=== PATIENT | male | born 1955 | race Caucasian/White ===

== ENCOUNTER 2017-05-20 18:36 | Inpatient (IN) | payer MEDICARE ==
--- NOTE | 2017-05-20 00:30 | NUR ---
RECEIVED ORDER FROM DR. COUGHLIN FOR MORPHINE POWDER COATER. NOW THERE IS AN ORDER FOR IV MORPHINE PRN PUT IN A LATE ENTRY FROM THE ER. WILL D/C ER ORDER AND START MORPHINE POWDER COATER. PT HAS A HEPARIN DRIP RUNNING TO RIGHT FOREARM. ATTEMPTED TO START A SECOND IV SITE, BUT WAS UNABLE TO. MYSELF, ANOTHER NURSE, AND A POWER LINEMAN TRIED TO START 2ND IV SITE WITHOUT SUCCESS. POWER LINEMAN RESEARCHED IF MORPHINE POWDER COATER WAS COMPATIBLE WITH IV HEPARIN. PER HER RESEARCH, THE TWO CAN BE CONNECTED VIA Y SITE. MORPHINE POWDER COATER INITIATED AND PT REPORTED SIGNIFICANT RELIEF FROM HIS PAIN. PT SLEEPING WITHOUT ANY COMPLAINTS.
[2017-05-20 19:42] LABS: BASOPHILS 0.2 % (0-2); EOSINOPHILS 1.2 % (0-7); HEMATOCRIT 40.3 % (42.0-54.0); HEMOGLOBIN 13.3 g/dL (13.5-17.5); IMMATURE GRANULOCYTES 0.3 % (0-5); LYMPHOCYTES 11.2 % (15-50); MCH 28.2 pg (26.0-34.0); MCV 85.4 fL (80.0-100.0); MEAN PLATELET VOLUME 10.6 fL (7.4-10.4); MONOCYTES 7.3 % (2-11); NEUTROPHILS 79.8 % (40-80); RBC 4.72 10x6/uL (4.20-6.10); RDW 16.2 % (11.5-14.5); WBC 12.8 10x3/uL (4.8-10.8)
[2017-05-20 19:43] LABS: PLATELET COUNT 225 10x3/uL (130-400)
[2017-05-20 19:50] LABS: INR 2.5 (0.85-1.17); PROTIME 27.1 SECONDS (11.6-15.0)
[2017-05-20 19:51] LABS: APTT 44.8 SECONDS (22.8-39.4)
[2017-05-20 19:55] LABS: ALBUMIN 2.4 g/dL (3.4-5.0); ALKALINE PHOSPHATASE 206 U/L (46-116); ALT (SGPT) 66 U/L (10-68); BILIRUBIN - TOTAL 0.17 mg/dL (0.2-1.3); CALC OSMOLALITY 277 mosm/kg (275-300); CALCIUM 9.2 mg/dL (8.5-10.1); CARBON DIOXIDE 32.4 mmol/L (21.0-32.0); CHLORIDE - SERUM 94 mmol/L (98-107); CREATININE - SERUM 1.7 mg/dL (0.6-1.3); GLUCOSE 182 mg/dL (74-106); POTASSIUM - SERUM 4.2 mmol/L (3.5-5.1); PROTEIN - SERUM 8.4 g/dL (6.4-8.2); SODIUM 132 mmol/L (136-145); UREA NITROGEN 36 mg/dL (7-18); eGFR NON AFRICAN AMERICAN 44 mL/min (90-120)
[2017-05-20 20:06] LABS: CKMB 0.3 U/L (0.0-3.6); CREATINE KINASE 38 UL (21-232); TROPONIN-I < 0.017 ng/mL (0.000-0.060)
--- NOTE | 2017-05-20 21:15 | NUR ---
PT NEW ADMIT FROM THE ER W/ DX OF LEFT ULNAR OCCULSION ON A HEPARIN DRIP. PT WITH VSS, BUT SEVERE PAIN. HE IS ALERT AND ORIENTED. INCONTIENT OF URINE. PT'S LEFT RADIAL PULSE OBTAINED VIA DOPPER, ULNAR PULSE UNABLE TO DOPPLER OR PALPATE. LEFT FINGERTIPS PURPLISH-BLUE W/ SLUGGISH CAP REFILL. RIGHT SIDE WNL. HEPARIN DRIP RUNNING AT 1000 UNITS/HR TO 20G IN RIGHT FOREARM. PT'S LEFT HAND AND ARM W/ 3+ EDEMA. PT IS REPORTING SEVERE PAIN 9/10 IN LEFT HAND AND ARM. ER NURSE STATED THAT THERE WAS AN ORDER FOR PAIN MEDS, BUT THERE IS NO ORDER IN THE SYSTEM. WILL CALL THE MD FOR PAIN MED FOR PT'S ISCHEMIC PAIN.
[2017-05-21] VITALS (8 sets, daily range): BP systolic 112–150; BP diastolic 62–73; BMI 25.5
[2017-05-21 03:58] LABS: BASOPHILS 0.1 % (0-2); EOSINOPHILS 1.1 % (0-7); HEMOGLOBIN 12.5 g/dL (13.5-17.5); IMMATURE GRANULOCYTES 0.3 % (0-5); LYMPHOCYTES 13.6 % (15-50); MCH 27.7 pg (26.0-34.0); MCHC 32.9 g/dL (31.0-37.0); MCV 84.3 fL (80.0-100.0); MEAN PLATELET VOLUME 10.6 fL (7.4-10.4); MONOCYTES 6.5 % (2-11); NEUTROPHILS 78.4 % (40-80); PLATELET COUNT 209 10x3/uL (130-400); RBC 4.51 10x6/uL (4.20-6.10); RDW 16.3 % (11.5-14.5)
[2017-05-21 04:04] LABS: ANION GAP 10.4 mmol/L (8-16); CALCIUM 8.9 mg/dL (8.5-10.1); CARBON DIOXIDE 30.8 mmol/L (21.0-32.0); CREATININE - SERUM 1.5 mg/dL (0.6-1.3); POTASSIUM - SERUM 4.2 mmol/L (3.5-5.1)
--- NOTE | 2017-05-21 06:39 | NUR ---
PT'S PAIN MUCH IMPROVED W/ MORPHINE CERTIFIED MASTER SAFE TECHNICIAN. PT HAS SLEPT THROUGHOUT THE REST OF THE SHIFT. WILL CONT TO MONITOR.
--- NOTE | 2017-05-21 07:55 | NUR ---
AM ROUNDING DONE WITH PATIENT APPEARING TO BE ALSEEP. RESP ARE EVEN AND NON LABORED. HEPARIN DRIP SEEN INFUSING AT 10 CC/HR TO RIGHT ARM ALONG WITH MANNEQUIN REFINISHER MS FOR PAIN CONTROL. ON ROOM AIR. NO HEART MONITOR ON PER ORDERS, WILL GET ONE FROM TECH. ON BEDREST. WILL MONITOR.
[2017-05-21] MEDS ORDERED: COUMADIN5 MG PO (09:36)
[2017-05-21] MEDS ORDERED: LASIX20 MG PO (09:37)
[2017-05-21] MEDS ORDERED: LIPITOR40 MG PO (09:37)
[2017-05-21] MEDS ORDERED: METOLAZONE2.5 MG PO (09:37)
[2017-05-21] MEDS ORDERED: LEVEMIR100 U/M1 SQ (09:38)
[2017-05-21] MEDS ORDERED: ALDACTONE25 MG PO (09:38)
[2017-05-21] MEDS ORDERED: COREG 3.1253.125 MG PO (09:39)
[2017-05-21] MEDS ORDERED: CORDARONE200 MG PO (09:39)
[2017-05-21] MEDS ORDERED: HYDRALAZINE HCL10 MG PO (09:39)
--- NOTE | 2017-05-21 15:22 | NUR ---
CALLED SID IN PHARMACY R/T LEVAMIR PATIENT STATES THAT HE TAKES IT IN THE AM.
--- NOTE | 2017-05-21 16:31 | NUR ---
CLEANED AGAIN FOR INCONT. OF URINE TO DEPENDS. PATIENT IS STARTING TO GET A LITTLE CHAFED IN GROIN. BUTT PASTE APPLIED.
--- NOTE | 2017-05-21 20:00 | NUR ---
PT RESTING IN BED. ALERT/ORIENTED. LEFT HAND/ARM SWOLLEN/EDEMATOUS. FINGERS REDDENED IN COLOR. IV TO RFA WITH HEPARIN DRIP AT 10ML/HR AND NS @ 75ML/HR + MORPHINE COPING MACHINE ASSEMBLER FOR PAIN CONTROL. SEE SHIFT ASSESSMENT. CPOC.
--- NOTE | 2017-05-21 21:15 | NUR ---
BEDTIME MEDS GIVEN. FSBS 108. PT INCONTINENT OF URINE. CHANGED BRIEF/PROVIDED SKIN CARE FOR INCONTINENCE. CALL LIGHT IN REACH. CPOC.
--- NOTE | 2017-05-22 02:48 | NUR ---
ASSISTED PT TO USE URINAL TO VOID. HEPARIN DRIP INFUSING. USING MORPHINE CHUTE BUILDER. LEFT ARM ELEVATED ON PILLOW.
[2017-05-22 04:00] VITALS: BP 115/58
[2017-05-22 05:00] VITALS: BP 112/58
--- NOTE | 2017-05-22 06:15 | NUR ---
NEW BAG OF IVF. PT C/O BEING WET. HE IS WET AND HIS BED IS WET. LINENS CHANGED. PERICARE PERFORMED. CHANGED DRESSING TO LEFT GROIN. PT NOW RESTING WITH NO FURTHER NEEDS.
[2017-05-22 06:45] LABS: BASOPHILS 0.3 % (0-2); EOSINOPHILS 1.6 % (0-7); HEMATOCRIT 34.3 % (42.0-54.0); HEMOGLOBIN 11.1 g/dL (13.5-17.5); IMMATURE GRANULOCYTES 0.4 % (0-5); LYMPHOCYTES 17.2 % (15-50); MCH 27.3 pg (26.0-34.0); MCHC 32.4 g/dL (31.0-37.0); MCV 84.3 fL (80.0-100.0); MEAN PLATELET VOLUME 11.5 fL (7.4-10.4); MONOCYTES 7.3 % (2-11); NEUTROPHILS 73.2 % (40-80); PLATELET COUNT 189 10x3/uL (130-400); RBC 4.07 10x6/uL (4.20-6.10); RDW 16.5 % (11.5-14.5)
[2017-05-22 06:51] LABS: INR 2.6 (0.85-1.17)
[2017-05-22 06:56] LABS: APTT 52.1 SECONDS (22.8-39.4)
[2017-05-22 07:00] LABS: ANION GAP 12.5 mmol/L (8-16); CALCIUM 8.5 mg/dL (8.5-10.1); CARBON DIOXIDE 29.9 mmol/L (21.0-32.0); CREATININE - SERUM 1.2 mg/dL (0.6-1.3); POTASSIUM - SERUM 4.4 mmol/L (3.5-5.1)
--- NOTE | 2017-05-22 07:25 | NUR ---
AM PTT 52.1 INCREASED HEPARIN DRIP TO 11ML/HR. NEXT PTT SCHEDULED FOR 1300.
--- NOTE | 2017-05-22 07:42 | NUR ---
HEPARIN DRIP WAS ADJUSTED PER PREVIOUS SHIFT, RE-CHECK AT 1300 FOR PTT. HEPARIN IS INFUSING TO RIGHT FA AT 11 CC/HR ALONG WITH NS AT 75 CC/HR AND COW TRIMMER WITH MS 07/27/09. RIGHT AKA. IN DEPENDS. ON HEART MONITOR SHOWING SR, HR 65. ROOM AIR. LEFT ARM IS ELEVATED ON PILLOW, SLIGHTLY SWOLLEN. WILL ADDRESS COLOR WHEN LIGHT ON. PATIENT APPEARING TO BE SLEEPING, RESP ARE EVEN AND NON LABORED. WILL MONITOR.
[2017-05-22 08:00] VITALS: BP 116/63
--- NOTE | 2017-05-22 08:58 | NUR ---
PATIENT'S BLOOD PRESSURE IS 116/53. HOLDING THE LASIX, APRESOLINE, AND ZAROXOLYN UNTIL IS SEE DR COUGHLIN AND ASK HIM. PATIENT IS IN AGREEMENT WITH THIS.
--- NOTE | 2017-05-22 09:17 | NUR ---
PATIENT IS MADE NPO FOR CT.
--- NOTE | 2017-05-22 11:18 | NUR ---
DR COUGHLIN HERE AND MADE AWARE OF PATIENT'S LASIX AND B/P MEDS BEING HELD. HE IS OKAY WITH ME HOLDING THEM TODAY.
--- NOTE | 2017-05-22 11:28 | NUR ---
IV CONVERTED TO SALINE LOCK FOR CTA TO BE DONE, GOING BY BED.
--- NOTE | 2017-05-22 12:22 | NUR ---
PATIENT TO RETURN FROM RADIOLOGY. ASSISTED WITH URNIANL. CALLED DIET OFFICE AND ASKED FOR HIS TRAY TO BE SENT UP.
--- NOTE | 2017-05-22 13:18 | NUR ---
1240-PTT RESULTS COME BACK AT 51.6. PER HEPARIN PROTOCOL SHEET, RATE INCREASED BY 100 UNITS OR 1. INCREASED TO 12 CC/HR. VERIFIED BY CARITO VELASQUEZ. WILL ORDER NEW PTT IN 6 HOURS.
[2017-05-22 16:00] VITALS: BP 118/43
--- NOTE | 2017-05-22 17:23 | NUR ---
FINISHED EATING HIS HAMBURGER WHICH HE STATES THAT HE DID NOT LIKE. I ASKED HIM IF HE WANTED SOMETHING ELSE AND HE REPLIED NO. WILL CONTINUE TO MONITOR.
--- NOTE | 2017-05-22 19:40 | NUR ---
PT RESTING IN BED. PTT HAS BEEN DRAWN. HEPARIN DRIP RESTARTED AT 12ML/HR, PENDING NEW LAB RESULTS. IV SITED TO RFA, NS @ 75ML/HR + MORPHINE RUBBER COMPOUNDER SUPERVISOR FOR PAIN CONTROL. HEPARIN DRIP IS PIGTAILED TO SITE. PT'S LEFT ARM AND HAND IS STILL SWOLLEN, BUT COLOR IS PINKING UP. PT IS OLD RIGHT AKA. HE IS WEARING A DEPENDS BECAUSE HE IS MORE INCONTINENT, THAN CONTINENT. SEE ASSESSMET. CPOC.
--- NOTE | 2017-05-22 20:30 | NUR ---
INCREASED HEPARIN DRIP TO 13ML/HR BASED ON PTT. NEXT PTT 0230.
[2017-05-22 20:49] VITALS: BP 131/67
--- NOTE | 2017-05-22 21:19 | NUR ---
BEDTIME MEDS GIVEN. FSBS 141, NO ACTION REQUIRED. PT WATCHING TV. MORPHINE DIRECTOR OF PUBLIC SAFETY IN USE FOR PAIN CONTROL. IVF NS @ 75ML/HR INFUSING. CPOC.
--- NOTE | 2017-05-22 23:03 | NUR ---
NEW BAG OF HEPARIN UP. PT INCONTINENT OF URINE. CARE PROVIDED. LINENS CHANGED.
[2017-05-23 01:18] VITALS: BP 125/56
--- NOTE | 2017-05-23 03:15 | NUR ---
PTT WAS DRAWN AT 0230. RESULT WAS EXCEEDINGLY HIGH AT 146.3. HEPARIN DRIP PUT ON HOLD AND LAB NOTIFIED OF NEED FOR REDRAW IN 30 MINUTES.
--- NOTE | 2017-05-23 04:18 | NUR ---
LAB NOW IN ROOM REDRAWING PTT. WILL AWAIT RESULTS.
[2017-05-23 05:25] VITALS: BP 118/56
--- NOTE | 2017-05-23 07:44 | NUR ---
AM ROUNDS- PT IN BED WITH EYES CLOSED, AROUSES EASILY TO VOICE. PT DENIES ANY NEEDS AT THIS TIME. RESP EVEN AND UNLABORED. RT FA IV INFUSING HEPARIN AT 14 AND MOPRHINE SCRIPT WORKER AND NS AT 75. BED LOW AND WHEELS LOCKED, BEDSIDE RAILS X2, CALL LIGHT IN REACH, NAD NOTED, WILL CONTINUE TO MONITOR.
[2017-05-23 08:00] VITALS: BP 132/62
--- NOTE | 2017-05-23 09:44 | NUR ---
ADMINISTERED AM MEDS. ALSO CLEAN PT UP FROM INCONT EPISODE. PT DENIES ANY OTHER NEEDS AT THIS TIME. CALL LIGHT IN REACH, NAD NOTED, WILL CONTINUE TO MONITOR.
--- NOTE | 2017-05-23 10:08 | NUR ---
Patient Name: MERCEDES HECTOR Admission Status: ER Accout number: [id number] Admission Date: 05-20-2017 : 1955 Admission Diagnosis: Attending: PORSHA COUGHLIN Current LOS: 3 Anticipated DC Date: 05-23-2017 Planned Disposition: Senior Living Facility Primary Insurance: MEDICARE A & B PLANNED EXTERNAL PROVIDER: [facility] Discharge Planning Comments: * Is the patient Alert and Oriented? Yes 0 * How many steps to enter\exit or inside your home? NONE 0 * PCP DR. SILVEIRA 0 * Pharmacy [facility] 0 * Preadmission Environment Senior Living Facility 0 * Facility Name [facility] 0 * ADLs Partial Dependent 0 * Partial ADLs (Assistance needed) Ambulation Bathing Medication Management Transfers 0 * Equipment Wheelchair 0 * Other Equipment ALL MEDICAL EQUIPMENT PROVIDED BY FACILITY 0 * List name and contact numbers for known caregivers / representatives who currently or will assist patient after discharge: YESENIA HECTOR, DTR, 0 * Community resources currently utilized None 0 * Please name any agencies selected above. NONE 0 * Additional services required to return to the preadmission environment? No 0 * Can the patient safely return to the preadmission environment? Yes 0 * Has this patient been hospitalized within the prior 30 days at any hospital? No 0 CM RECEIVED DISCHARGE ORDER, MET WITH PT IN ROOM TO DISCUSS DISCHARGE PLANNING AND NEEDS. PT REPORTS HE WILL BE RETURNING TO REHAB AT [facility]; PT WILL CALL HIS FAMILY AND ASKED IF HE NEEDS TO CALL [facility]; CM ADVISED THAT NURSING AND CM WILL MAKE TRANSPORATION ARRANGEMENTS WITH [facility] TO PICK PT UP TODAY. IMPORTANT MESSAGE FROM MEDICARE PROVIDED AND EXPLAINED. CM CALLED [facility] AT [phone], SPOKE TO YEIMY WHO REPORTS THEY NEED MEDICAL INFORMATION FOR REVIEW AND TO SPEAK WITH THE BEDSIDE NURES BEFORE ACCEPTING BACK. CM FAXED CHART INFORMATION TO [facility] AT [phone]. NURSE REPORT TO BE CALLED TO [facility] AT [phone]. [facility] TO ARRANGE TRANSPORTATION FOR PT'S RETURN REHAB IF ACCEPTED. Geometry Teacher: Margarito Richards
--- NOTE | 2017-05-23 11:24 | NUR ---
BLOOD SUGAR OF 172, PT REFUSED COVERAGE STATED " THAT'T NOT HIGH. PT DENIES ANY NEEDS AT THIS TIME. CALL LIGHT IN REACH, NAD NOTED, WILL CONTINUE TO MONITOR.
--- NOTE | 2017-05-23 11:49 | NUR ---
ASSOCIATE PROFESSOR OF PSYCHOLOGY D/C AT THIS TIME. WASTED 1MG OF MORPHINE WITH ANOTHER RN. [facility] WILL PICK PT UP AFTER LUNCH.
[2017-05-23 12:00] VITALS: BP 136/57
--- NOTE | 2017-05-23 12:20 | NUR ---
CALLED [facility] AT [phone] AND GAVE REPORT TO ANN HONEYCUTT WHO WILL BE TAKING CARE OF PT.
--- NOTE | 2017-05-23 12:44 | NUR ---
PROVIDED VERBAL AND WRITTEN D/C TEACHING TO PT. PT VERBALIZED UNDERSTANDING REGARDING TEACHING. D/C RT FA IV TIP INTACT. WAITING ON [facility] TO PICK HIM UP. PT DENIES ANY NEEDS AT THIS TIME.
--- NOTE | 2017-05-23 14:10 | NUR ---
PT LEFT UNIT VIA WHEELCHAIR, NAD NOTED.
--- NOTE | 2017-06-06 14:45 | DS ---
PATIENT:MERCEDES HECTOR :[birth year] MEDICAL RECORD: [id number] DISCHARGE SUMMARY ADMISSION DATE: 05/20/17 DISCHARGE DATE: 05/23/17 DATE OF ADMISSION: 05/20/2017 DATE OF DISCHARGE: 05/23/2017 ADMISSION DIAGNOSES: 1. Peripheral vascular disease. 2. Obstruction of left ulnar artery. 3. Atrial fibrillation. 4. Diabetes mellitus. 5. History of chronic Coumadin use. 6. Tobacco dependence syndrome. DISCHARGE DIAGNOSES: 1. Peripheral vascular disease. 2. Obstruction of left ulnar artery. 3. Atrial fibrillation. 4. Diabetes mellitus. 5. History of chronic Coumadin use. 6. Tobacco dependence syndrome. PROCEDURES: None. CONSULTATIONS: None. REPORT OF HOSPITALIZATION: The patient was admitted to the hospital through the ER with chronic pain in the left hand, which had been ongoing for the last few months, but got acutely worse few days prior to admission. He noted that hand turned purple. His INR on admission was 2.5. He had a history of atrial bi-fem with severe peripheral vascular disease. He had a history of a right AKA in 2009. The patient was admitted to the hospital and put on a heparin drip and maintained off of his tobacco. Initially, his creatinine was too high to perform any radiological evaluations, but he did have an ultrasound, which showed no flow in the ulnar artery on the left hand. Eventually, his creatinine improved to the point where we were able to get a CTA of the left upper extremity. The findings showed there was a patent left subclavian, axillary, and brachial arteries with limited visualization of the interosseous artery beyond the proximal portion of the vessel. There was limited visualization of ulnar artery. The patient did have flow seen through the radial artery to the hand. The patient also did have a patent left ax-fem bypass graft in place. Over his hospitalization, his hand actually improved, had warmed up and the color returned. The patient was told that he really did not have any surgical options available for this and that he was on antiembolic medications already. The patient was told that his improvement was most likely related to the fact that he was not smoking while he was in the hospital. DISCHARGE INSTRUCTIONS: 1. Return to clinic or call if any questions or concerns. 2. Recommended strongly smoking cessation. FOLLOWUP: As needed. DISCHARGE SUMMARY REPORT [id number] MERCEDES HECTOR DISCHARGE MEDICATIONS: Resume home medications. TRANSINT:[id number] Voice Confirmation ID: [id number] DOCUMENT ID: [id number] PORSHA COUGHLIN MD at 1445 CC: [id number] DICTATION DATE: 05/31/17 1501 HADOOP ADMINISTRATOR: 05/31/17 1523 DIS IN 05/23/17 [place] [id number] [place] [id number]
== END 2017-05-23 14:10 | DRG 301 ==
LOC: D.ER 18:36 → D.M2 21:10
PROVIDERS: Family Medicine; ADMIT Surgery
DX: I70.208 Unspecified atherosclerosis of native arteries of extremities, other extremity (principal); E11.9 Type 2 diabetes mellitus without complications; Z79.4 Long term (current) use of insulin; Z79.01 Long term (current) use of anticoagulants; I48.2 Chronic atrial fibrillation; Z89.611 Acquired absence of right leg above knee; Z72.0 Tobacco use

== ENCOUNTER 2018-05-26 12:53 | Inpatient (IN) | payer MEDICARE ==
[~2018-05-26] VITALS: Ht 172.7 cm; Wt 81.6 kg
--- NOTE | ~2018-05-26 | MORECARE ---
CASE MANAGEMENT DISCHARGE SUMMARY PATIENT: MERCEDES HECTOR UNIT: [id number] ADM DATE: 05/26/18 AGE: 63 : [birth year] SEX: M ROOM/BED: D.2205 AUTHOR: JOLYNN,DOC PHYSICIAN: REFERRING PHYSICIAN: LENA PETERS MD DATE OF SERVICE: 05/26/18 Discharge Plan Patient Name: MERCEDES HECTOR Facility: [facility]:[place] : 1955 Planned Disposition: Home with Home Health Anticipated Discharge Date: 05/29/18 Discharge Date: Expected LOS: 3 Initial Reviewer: [email or web address] Initial Review Date: 05/26/2018 Generated: 05/26/18 6:10 pm DCP- Discharge Planning Updated by [email or web address]: Olivia Reyes on 05/26/18 4:[address] Patient Name: MERCEDES HECTOR Admission Status: ER Accout number: [id number] Admission Date: 05-26-2018 : 1955 Admission Diagnosis: Attending: LENA PETERS Current LOS: 1 Anticipated DC Date: 05-29-2018 Planned Disposition: Home with Home Health Primary Insurance: MEDICARE A & B Discharge Planning Comments: CM met with patient to complete initial dc planning assessment. CM educated patient on the CM role and verbal consent given by patient to complete assessment. Patient lives at home with his friend Bairon. He has [facility] services at home and personal CG 5 x week 6 hours each day. He is wheelchair bound and does not ambulate. He has had amputation to his right leg above the knee. He stated he wears depends all the time and is incontinent of bowel and bladder at times. At discharge patient plans to return to Bairon's home with resumption of cg's and [facility]. He feels this is a safe discharge. Patient denied known discharge needs at this time. CM will continue to follow and will assist as needed with dc plans/needs. See below for more assessment information. Lag Screwer: Oliiva Reyes RN, [facility] DCPIA - Discharge Planning Initial Assessment Updated by [id number]: Olivia Reyes on 05/26/18 5:06 pm * Is the patient Alert and Oriented? Yes * How many steps to enter\exit or inside your home? None * PCP Dr. Marcus Trejo * Pharmacy [facility] * Preadmission Environment Home with Family * ADLs Partial Dependent * Partial ADLs (Assistance needed) Ambulation Bathing Dressing Toileting Transfers * Equipment Wheelchair * List name and contact numbers for known caregivers / representatives who currently or will assist patient after discharge: Bairon Chapa - friend/lives with - [phone] * Verbal permission to speak to the caregivers and representatives has been obtained from the patient. Yes * Community resources currently utilized Home Health Private Duty Care * Please name any agencies selected above. CG services 5 days a week for 6 hours each day * Additional services required to return to the preadmission environment? No * Can the patient safely return to the preadmission environment? Yes * Has this patient been hospitalized within the prior 30 days at any hospital? Yes Patient Name: MERCEDES HECTOR Page [id number] at 1710 All edits/amendments must be made on the electronic document DICTATION DATE: 05/26/181709 ORNAMENTER: BONILLA 05/26/181709 RPT#: [id number] DC DATE: STATUS: ADM IN [facility] [address] [place] [address] END OF REPORT
--- NOTE | ~2018-05-26 | CN ---
PATIENT NAME:MERCEDES MEDEIROS MEDICAL RECORD: [id number] : 57 LOCATION:D.MS Ram2225 ADMIT DATE: 05/26/18 ACCOUNT: [id number] CONSULTING PHYSICIAN: HERMES CHATMAN MD REFERRING PHYSICIAN: LENA PETERS MD DATE OF CONSULTATION: 05/29/2018 CONSULT REQUESTING PHYSICIAN: Rodger Kauffman MD REASON FOR CONSULTATION: Bilateral lower lobe pneumonia and generalized lethargy. HISTORY OF PRESENT ILLNESS: Mr. Medeiros is a 63-year-old gentleman who was admitted with cellulitis of the left lower extremity. He was also complaining of cough without much sputum production. He was also admitted to [facility] in [place] for UTI and sepsis a few days ago. REVIEW OF THE SYSTEMS: Mainly in the history of present illness. PAST MEDICAL HISTORY: 1. Peripheral vascular disease. 2. Diabetes mellitus. 3. History of arterial thromboembolism. 4. Chronic backache. 5. Coronary artery disease. 6. Type 2 diabetes mellitus. PAST SURGICAL HISTORY: He has right above-knee amputation. ALLERGIES: HE IS ALLERGIC TO CODEINE. MEDICATIONS: [employer] was reviewed. PERSONAL AND SOCIAL HISTORY: He is nondrinker. He is current everyday smoker. FAMILY HISTORY: Significant for diabetes and hypertension. PHYSICAL EXAMINATION: GENERAL: Now, the patient is lying comfortably in bed. He is awake, alert, and not in acute distress. VITAL SIGNS: The blood pressure is 124/48, pulse is 81, respiration is 16, temperature is 98.2, and SpO2 is 100% on 4 liters nasal cannula. HEENT: Conjunctivae are pink. Sclerae are not icteric. NECK: Neck is supple. No JVD. CHEST: The chest excursion is minimal, but there are basal crackles. HEART: Rhythm regular. Normal sound. No murmur. ABDOMEN: Abdomen is soft. Bowel sounds present. No hepatosplenomegaly. RECTAL: Deferred. EXTREMITIES: No cyanosis. No clubbing. Peripheral pulses are 2/6. He has right above-knee amputation. LABORATORY DATA: CBC; the WBC is 7.2, hemoglobin 8.2, hematocrit is 27.5, and the platelet count is 192. Chemistry; sodium 140, potassium 3.7, BUN is 17, creatinine 1.8. ABG; the pH is 7.40, pCO2 is 61.6, the pO2 is 97, and bicarb is 38.3. CONSULT REPORT [id number] MERCEDES MEDEIROS IMPRESSION: 1. Effvk-gu-lmcxbwk hypoxic hypercapnic respiratory failure. 2. Compensated metabolic alkalosis. 3. Bilateral lower lobe pneumonia. 4. Cellulitis of the left foot. 5. DVT of upper extremities. 6. Peripheral vascular disease. 7. Anemia. 8. Atrial fibrillation. 9. Tobacco dependence syndrome. 10. Suspect COPD. RECOMMENDATION: 1. Albuterol and ipratropium nebulizer. 2. Continue vancomycin and Zosyn, current empiric antibiotic. 3. Start him on Diamox. 4. Continue Lasix. 5. Check the ammonia level. 6. Consult Dr. Ledezma for hypercoagulable state. 7. Supplemental oxygen as required. Dr. Kauffman, thank you for involving me in the care of Mr. Medeiros. TRANSINT:[id number] Voice Confirmation ID: [id number] DOCUMENT ID: [id number] HERMES CHATMAN MD at 1711 CC: [id number] DICTATION DATE: 05/29/18 1642 POWER SHOVEL MECHANIC: 05/29/181910 DIS IN 06/06/18 [facility] [address] [place] [address]
--- NOTE | ~2018-05-26 | MORECARE ---
CASE MANAGEMENT DISCHARGE SUMMARY PATIENT: MERCEDES HECTOR UNIT: [id number] ADM DATE: 05/26/18 AGE: 63 : 57 SEX: M ROOM/BED: D.2225 AUTHOR: JOLYNN,DOC PHYSICIAN: REFERRING PHYSICIAN: LENA CUELLAR MD DATE OF SERVICE: 06/06/18 Discharge Plan Patient Name: MERCEDES HECTOR Facility: [facility]:[place] : 1955 Planned Disposition: Home with Home Health Anticipated Discharge Date: 05/29/18 Discharge Date: Expected LOS: 3 Initial Reviewer: [email or web address] Initial Review Date: 05/26/2018 Generated: 06/06/18 1:49 pm Comments DCP- Discharge Planning Updated by [email or web address]: Allie Ch on 06/06/18 8:[address] Cuellar's SPORTS THERAPIST on the floor, I have asked for the exact order to lopes antibiotic. I did call Susan at [facility] and they will do his antibiotic as scheduled. I will send them order when received. CM will continue to follow and assist with discharge planning/needs. DCP- Discharge Planning Updated by [email or web address]: Allei Ch on 06/02/18 9:[address] Met with patient concerning discharge planning, he is alone in the room. States he is ready to go home and feels home is a safe environment. States he is never by himself and he has caregivers and home health services. CM will continue to follow and assist with discharge planning, needs. DCP- Discharge Planning Updated by [id number]: Olivia Reyes on 05/26/18 4:[address] Patient Name: MERCEDES HECTOR Admission Status: ER Accout number: [id number] Admission Date: 05-26-2018 : 1955 Admission Diagnosis: Attending: LENA CUELLAR Current LOS: 1 Anticipated DC Date: 05-29-2018 Planned Disposition: Home with Home Health Primary Insurance: MEDICARE A & B Discharge Planning Comments: CM met with patient to complete initial dc planning assessment. CM educated patient on the CM role and verbal consent given by patient to complete assessment. Patient lives at home with his friend Bairon. He has [facility] services at home and personal CG 5 x week 6 hours each day. He is wheelchair bound and does not ambulate. He has had amputation to his right leg above the knee. He stated he wears depends all the time and is incontinent of bowel and bladder at times. At discharge patient plans to return to Bairon's home with resumption of cg's and [facility]. He feels this is a safe discharge. Patient denied known discharge needs at this time. CM will continue to follow and will assist as needed with dc plans/needs. See below for more assessment information. Air Conditioning Specialist: Olivia Reyes RN, [facility] DCPIA - Discharge Planning Initial Assessment Updated by [email or web address]: Olivia Reyes on 05/26/18 5:06 pm * Is the patient Alert and Oriented? Yes * How many steps to enter\exit or inside your home? None * PCP Dr. Marcus Trejo * Pharmacy [facility] * Preadmission Environment Home with Family * ADLs Partial Dependent * Partial ADLs (Assistance needed) Ambulation Bathing Dressing Toileting Transfers * Equipment Wheelchair * List name and contact numbers for known caregivers / representatives who currently or will assist patient after discharge: Bairon Chapa - friend/lives with - [phone] * Verbal permission to speak to the caregivers and representatives has been obtained from the patient. Yes * Community resources currently utilized Home Health Private Duty Care * Please name any agencies selected above. CG services 5 days a week for 6 hours each day * Additional services required to return to the preadmission environment? No * Can the patient safely return to the preadmission environment? Yes * Has this patient been hospitalized within the prior 30 days at any hospital? Yes External Providers External Provider: [facility] Next Contact Date: Service Request Date: Service Type: Resolution: Reviewer: Comments: Last DP export: 06/06/18 8:42 Patient Name: MERCEDES HECTOR Page [phone] at 1249 All edits/amendments must be made on the electronic document DICTATION DATE: 06/06/18 1245 PROSTHODONTIST: BONILLA 06/06/18 124 RPT#: [id number] DC DATE: STATUS: ADM IN [facility] [address] [place] [address] END OF REPORT
--- NOTE | ~2018-05-26 | CN ---
PATIENT NAME:MERCEDES HECTOR MEDICAL RECORD: [id number] : 57 LOCATION:D.MS Ram2205 ADMIT DATE: 05/26/18 ACCOUNT: [id number] CONSULTING PHYSICIAN: ANABEL PHAN MD REFERRING PHYSICIAN: LENA PETERS MD DATE OF CONSULTATION: 05/28/2018 HISTORY: A 63-year-old gentleman with history of severe systemic vasculopathy, has a history of DVT, ongoing smoking, status post right AKA; presented with erythema, tenderness, and swelling of the left lower extremity; noted to have cellulitis and started on antibiotics. Actually, erythema has improved at this point. We are asked to see him concerning his cardiovascular status. PAST MEDICAL HISTORY: Includes; 1. History of hypertension. 2. Atrial fibrillation. 3. 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 4. Renal insufficiency. 5. Diabetes mellitus. 6. Anemia. SOCIAL HISTORY: Wheelchair bound. Smokes about a pack everyday. No illicit drug use. Needs some assistance with ADLs. MEDICATIONS: Typically, include Coumadin per scale, metolazone 2.5 daily, atorvastatin 40 daily, insulin 25 units daily, Aldactone 25 daily, amiodarone 200 daily, hydralazine 10 b.i.d., carvedilol 3.125 daily, and Lasix 20 daily. REVIEW OF SYSTEMS: The patient reports easy bruising but reports no swollen glands. The patient reports no fever, no night sweats, no significant weight gain, no significant weight loss. No significant exercise tolerance. The patient reports no dry eyes, no irritation, no vision change. Patient reports no difficulty hearing and no ear pain. Patient reports no frequent nose bleeds or nose and sinus problems. Patient reports on arm pain on exertion. No shortness of breath while lying down. No history of heart murmur. Patient reports no cough, no wheezing or coughing up blood. Patient reports no abdominal pain, no vomiting. Normal appetite. No diarrhea and not vomiting blood. No nausea and no constipation. Patient reports no incontinence. No difficulty urinating. No hematuria. No increased frequency. Patient reports no muscle aches. No weakness, no arthralgias, no back pain. No swelling of the extremities. Patient reports no abnormal mole, no jaundice, no rashes. Reports no loss of consciousness. No weakness and no numbness. No seizures, dizziness, or headaches. The patient reports no depression, no sleep disturbance, feeling safe in a relationship and no alcohol abuse. Patient reports on fatigue. Reports no runny nose or sinus pressure. No itching, no hives, and no frequent sneezing. PHYSICAL EXAMINATION: GENERAL: Chronically ill-appearing gentleman, in no acute distress. VITAL SIGNS: Blood pressure 133/60. Pulse 80 and irregular. HEENT: Normocephalic and atraumatic. NECK: No bruits are noted. HEART: Irregular. There is II-III/ systolic ejection murmur. LUNGS: Fair air excursion. Prolonged respiratory phase. CONSULT REPORT [id number] MERCEDES HECTOR ABDOMEN: Soft and nontender. EXTREMITIES: Left lower extremity shows improving erythema. Questionable palpable pulses in posterior tibial and dorsalis pedis. IMPRESSION: Severe systemic vasculopathy and ongoing tobacco use. Agree with treating cellulitis as you are doing. We will consider CTA of left lower extremity at some point to see if any candidate for intervention. Given noncompliance, etc., doubt long-term patency of this vessel is an option. TRANSINT:[id number] Voice Confirmation ID: [id number] DOCUMENT ID: [id number] ANABEL PHAN MD at 1150 CC: [id number] DICTATION DATE: 05/28/18 1006 COMMERCIAL LINES SALES EXECUTIVE: 05/28/18 1337 ADM IN [facility] [address] [place] [id number]
--- NOTE | ~2018-05-26 | MORECARE ---
CASE MANAGEMENT DISCHARGE SUMMARY PATIENT: MERCEDES HECTOR UNIT: [id number] ADM DATE: 05/26/18 AGE: 63 : 57 SEX: M ROOM/BED: D.2225 AUTHOR: JOLYNN,DOC PHYSICIAN: REFERRING PHYSICIAN: LENA CUELLAR MD DATE OF SERVICE: 06/06/18 Discharge Plan Patient Name: MERCEDES HECTOR Facility: [facility]:[place] : 1955 Planned Disposition: Home with Home Health Anticipated Discharge Date: 05/29/18 Discharge Date: Expected LOS: 3 Initial Reviewer: [email or web address] Initial Review Date: 05/26/2018 Generated: 06/06/18 5:56 pm Comments DCP- Discharge Planning Updated by [email or web address]: Paola Rainey on 06/06/18 3:[address] PATIENT WILL BE DISCHARGING WITH ORAL ABX NOT IV ABX DCP- Discharge Planning Updated by [email or web address]: Paola Rainey on 06/06/18 3:[address] Patient will be discharging home with home health ([facility]) IMM served and explained. CM will continue to follow and assist with DC planning as needed DCP- Discharge Planning Updated by [id number]: Allie Ch on 06/06/18 8:[address] Cuellar's INTAKE COUNSELOR on the floor, I have asked for the exact order to lopes antibiotic. I did call Susan at [facility] and they will do his antibiotic as scheduled. I will send them order when received. CM will continue to follow and assist with discharge planning/needs. DCP- Discharge Planning Updated by [id number]: Allie Ch on 06/02/18 9:[address] Met with patient concerning discharge planning, he is alone in the room. States he is ready to go home and feels home is a safe environment. States he is never by himself and he has caregivers and home health services. CM will continue to follow and assist with discharge planning, needs. DCP- Discharge Planning Updated by [email or web address]: Olivia Reyes on 05/26/18 4:[address] Patient Name: MERCEDES HECTOR Admission Status: ER Accout number: [id number] Admission Date: 05-26-2018 : 1955 Admission Diagnosis: Attending: LENA CEULLAR Current LOS: 1 Anticipated DC Date: 05-29-2018 Planned Disposition: Home with Home Health Primary Insurance: MEDICARE A & B Discharge Planning Comments: CM met with patient to complete initial dc planning assessment. CM educated patient on the CM role and verbal consent given by patient to complete assessment. Patient lives at home with his friend Bairon. He has [facility] services at home and personal CG 5 x week 6 hours each day. He is wheelchair bound and does not ambulate. He has had amputation to his right leg above the knee. He stated he wears depends all the time and is incontinent of bowel and bladder at times. At discharge patient plans to return to Bairon's home with resumption of cg's and [facility]. He feels this is a safe discharge. Patient denied known discharge needs at this time. CM will continue to follow and will assist as needed with dc plans/needs. See below for more assessment information. Director Of Business Continuity: Olivia Reyes RN, [facility] DCPIA - Discharge Planning Initial Assessment Updated by [email or web address]: Olivia Reyes on 05/26/18 5:06 pm * Is the patient Alert and Oriented? Yes * How many steps to enter\exit or inside your home? None * PCP Dr. Marcus Trejo * Pharmacy [facility] * Preadmission Environment Home with Family * ADLs Partial Dependent * Partial ADLs (Assistance needed) Ambulation Bathing Dressing Toileting Transfers * Equipment Wheelchair * List name and contact numbers for known caregivers / representatives who currently or will assist patient after discharge: Bairon Chapa - friend/lives with - [phone] * Verbal permission to speak to the caregivers and representatives has been obtained from the patient. Yes * Community resources currently utilized Home Health Private Duty Care * Please name any agencies selected above. CG services 5 days a week for 6 hours each day * Additional services required to return to the preadmission environment? No * Can the patient safely return to the preadmission environment? Yes * Has this patient been hospitalized within the prior 30 days at any hospital? Yes External Providers External Provider: [facility] Next Contact Date: Service Request Date: Service Type: Resolution: Reviewer: Comments: Coverage Notice Reviewer: [email or web address] - Paola Rainey Notice Issued Date-Time: 06/06/2018 16:45 Notice Type: IM Discharge Notice Notice Delivered To: Patient Relationship to Patient: Metal Miner Name: Delivery Method: HAND - Hand Delivered May Days: Prior Verbal Notification: Recipient Understood Notice: Yes Recipient Signature: Yes Med Rec Note Co-signed by Attending: Coverage Notice Comment: Last DP export: 06/06/18 11:49 Patient Name: MERCEDES HECTOR Page 21416 at 1656 All edits/amendments must be made on the electronic document DICTATION DATE: 06/06/181654 SENIOR CLINICAL SAS PROGRAMMER: BONILLA 06/06/181654 RPT#: [id number] DC DATE: STATUS: ADM IN [facility] [address] [place] [address] END OF REPORT
--- NOTE | ~2018-05-26 | EC ---
PATIENT:MERCEDES HECTOR DATE OF SERVICE: 05/26/18 SEX: M MEDICAL RECORD: [id number] DATE OF : 57 LOCATION:D.MS Ram220 AGE OF PATIENT: 63 ADMISSION DATE: 05/26/18 REFERRING PHYSICIAN: INTERPRETING PHYSICIAN: ANABEL PHAN MD ECHOCARDIOGRAM REPORT ECHO CHARGES 4 ECHO COMPLETE Date: 05/27/18 CLINICAL DIAGNOSIS: LV FUN/LOWER LEG CELLULITIES ECHOCARDIOGRAPHIC MEASUREMENTS (adult normal given) AC root (d.<3.7cm) 3.2 cm LV Septum d (<1.2 cm> 1.9 cm Valve Excursion 1.4 cm LV Septum (systole) 2.0 cm Left Atria (s.<4.0cm> 4.2 cm LVPW d(<1.2cm) 2.1 cm RV (d.<2.3cm) 4.0 cm LVPW (sytole) 2.2 cm LV diastole(<5.6CM) 5.1 cm MV E-F(>70mm/sec) cm LV systole 3.6 cm LVOT Diameter 1.7 cm MV exc.(>10mm) 1.6 cm Est.ejection fraction (50-75%) % DOPPLER: LVIT cm/sec A 103 cm/sec E 127 cm/sec LA cm/sec RVSP 52 mmHg LVOT 224 cm/sec AOP1/2T m/s Asc. Ao 452 cm/sec RVOT 90 cm/sec RA cm/sec PA 164 cm/sec AV Gradient Peak 81.60mmHg AV Mean 54.48mmHg AV Area 1.0 cm MV Gradient Peak 7.36 mmHg MV Mean 3.86 mmHg MV Area cm COMMENTS: Wool Cleaner: Isabella REICH Computer Information Systems Instructor: 3 Dr. Cruz TAPE# PACS Pericardial Effusion N DATE OF SERVICE: 05/28/2018 Adequate 2-D echo, color flow and spectral Doppler, and M-mode. LVH is present. LV internal dimensions are normal. Wall motion is normal. EF is greater than or equal to 55%. Aortic valve is calcified with restriction of leaflet motion. Mean gradient is 54 mmHg, putting this in ytphrxfj-nb-hkklna range. This may be overestimated due to underlying anemia however. Left atrium is mildly dilated at 4.2 cm. Mitral valve shows no prolapse. Mild MR. Right-sided chamber is grossly normal. Enpx-io-qrjchxqo TR. PA systolic ECHOCARDIOGRAM REPORT [id number] MERCEDES HECTOR pressure is estimated greater than or equal to 50 mmHg via the continuity equation. TRANSINT:[id number] Voice Confirmation ID: [id number] DOCUMENT ID: [id number] ANABEL PHAN MD at 1150 CC: [id number] DICTATION DATE: 05/28/18937 TELLER SUPERVISOR: 05/28/18 1226 ADM IN [facility] [address] [place] [address]
--- NOTE | ~2018-05-26 | MORECARE ---
CASE MANAGEMENT DISCHARGE SUMMARY PATIENT: MERCEDES HECTOR UNIT: [id number] ADM DATE: 05/26/18 AGE: 63 : 57 SEX: M ROOM/BED: D.2225 AUTHOR: JOLYNN,DOC PHYSICIAN: REFERRING PHYSICIAN: LENA PETERS MD DATE OF SERVICE: 06/02/18 Discharge Plan Patient Name: MERCEDES HECTOR Facility: [facility]:[place] : 1955 Planned Disposition: Home with Home Health Anticipated Discharge Date: 05/29/18 Discharge Date: Expected LOS: 3 Initial Reviewer: [email or web address] Initial Review Date: 05/26/2018 Generated: 06/02/18 12:02 pm Comments DCP- Discharge Planning Updated by [id number]: Allie Ch on 06/02/18 9:[address] Met with patient concerning discharge planning, he is alone in the room. States he is ready to go home and feels home is a safe environment. States he is never by himself and he has caregivers and home health services. CM will continue to follow and assist with discharge planning, needs. DCP- Discharge Planning Updated by [email or web address]: Olivia Reyes on 05/26/18 4:[address] Patient Name: MERCEDES HECTOR Admission Status: ER Accout number: [id number] Admission Date: 05-26-2018 : 1955 Admission Diagnosis: Attending: LENA PETERS Current LOS: 1 Anticipated DC Date: 05-29-2018 Planned Disposition: Home with Home Health Primary Insurance: MEDICARE A & B Discharge Planning Comments: CM met with patient to complete initial dc planning assessment. CM educated patient on the CM role and verbal consent given by patient to complete assessment. Patient lives at home with his friend Bairon. He has [facility] services at home and personal CG 5 x week 6 hours each day. He is wheelchair bound and does not ambulate. He has had amputation to his right leg above the knee. He stated he wears depends all the time and is incontinent of bowel and bladder at times. At discharge patient plans to return to Bairon's home with resumption of cg's and [facility]. He feels this is a safe discharge. Patient denied known discharge needs at this time. CM will continue to follow and will assist as needed with dc plans/needs. See below for more assessment information. Gas Welding Machine Operator: Olivia Reyes RN, [facility] DCPIA - Discharge Planning Initial Assessment Updated by [email or web address]: Olivia Reyes on 05/26/18 5:06 pm * Is the patient Alert and Oriented? Yes * How many steps to enter\exit or inside your home? None * PCP Dr. Marcus Trejo * Pharmacy [facility] * Preadmission Environment Home with Family * ADLs Partial Dependent * Partial ADLs (Assistance needed) Ambulation Bathing Dressing Toileting Transfers * Equipment Wheelchair * List name and contact numbers for known caregivers / representatives who currently or will assist patient after discharge: Bairon Chapa - friend/lives with - [phone] * Verbal permission to speak to the caregivers and representatives has been obtained from the patient. Yes * Community resources currently utilized Home Health Private Duty Care * Please name any agencies selected above. CG services 5 days a week for 6 hours each day * Additional services required to return to the preadmission environment? No * Can the patient safely return to the preadmission environment? Yes * Has this patient been hospitalized within the prior 30 days at any hospital? Yes Last DP export: 05/26/18 4:10 p Patient Name: MERCEDES HECTOR Page 99327 at 1102 All edits/amendments must be made on the electronic document DICTATION DATE: 06/02/181101 SOFTWARE IMPLEMENTATION PROJECT MANAGER: BONILLA 06/02/18 110 RPT#: [id number] [place] DATE: STATUS: ADM IN [facility] [address] [place] [address] END OF REPORT
--- NOTE | ~2018-05-26 | MORECARE ---
CASE MANAGEMENT DISCHARGE SUMMARY PATIENT: MERCEDES HECTOR UNIT: [id number] ADM DATE: 05/26/18 AGE: 63 : 57 SEX: M ROOM/BED: D.2225 AUTHOR: JOLYNN,DOC PHYSICIAN: REFERRING PHYSICIAN: LENA CUELLAR MD DATE OF SERVICE: 06/07/18 Discharge Plan Patient Name: MERCEDES HECTOR Facility: [facility]:[place] : 1955 Planned Disposition: Home with Home Health Anticipated Discharge Date: 05/29/18 Discharge Date: 06/06/2018 Expected LOS: 3 Initial Reviewer: [email or web address] Initial Review Date: 05/26/2018 Generated: 06/07/18 12:01 pm Comments DCP- Discharge Planning Updated by [email or web address]: Paola Rainey on 06/06/18 3:[address] PATIENT WILL BE DISCHARGING WITH ORAL ABX NOT IV ABX DCP- Discharge Planning Updated by [email or web address]: Paola Rainey on 06/06/18 3:[address] Patient will be discharging home with home health ([facility]) IMM served and explained. CM will continue to follow and assist with DC planning as needed DCP- Discharge Planning Updated by [email or web address]: Allie Ch on 06/06/18 8:[address] Cuellar's SIDING APPLICATOR on the floor, I have asked for the exact order to lopes antibiotic. I did call Susan at [facility] and they will do his antibiotic as scheduled. I will send them order when received. CM will continue to follow and assist with discharge planning/needs. DCP- Discharge Planning Updated by [email or web address]: Allie Ch on 06/02/18 9:[address] Met with patient concerning discharge planning, he is alone in the room. States he is ready to go home and feels home is a safe environment. States he is never by himself and he has caregivers and home health services. CM will continue to follow and assist with discharge planning, needs. DCP- Discharge Planning Updated by [email or web address]: Olivia Reyes on 05/26/18 4:[address] Patient Name: MERCEDES HECTOR Admission Status: ER Accout number: [id number] Admission Date: 05-26-2018 : 1955 Admission Diagnosis: Attending: LENA CUELLAR Current LOS: 1 Anticipated DC Date: 05-29-2018 Planned Disposition: Home with Home Health Primary Insurance: MEDICARE A & B Discharge Planning Comments: CM met with patient to complete initial dc planning assessment. CM educated patient on the CM role and verbal consent given by patient to complete assessment. Patient lives at home with his friend Bairon. He has [facility] services at home and personal CG 5 x week 6 hours each day. He is wheelchair bound and does not ambulate. He has had amputation to his right leg above the knee. He stated he wears depends all the time and is incontinent of bowel and bladder at times. At discharge patient plans to return to Bairon's home with resumption of cg's and [facility]. He feels this is a safe discharge. Patient denied known discharge needs at this time. CM will continue to follow and will assist as needed with dc plans/needs. See below for more assessment information. Street Sweeper Operator: Olivia Reyes RN, [facility] DCPIA - Discharge Planning Initial Assessment Updated by [email or web address]: Olivia Reyes on 05/26/18 5:06 pm * Is the patient Alert and Oriented? Yes * How many steps to enter\exit or inside your home? None * PCP Dr. Marcus Trejo * Pharmacy [facility] * Preadmission Environment Home with Family * ADLs Partial Dependent * Partial ADLs (Assistance needed) Ambulation Bathing Dressing Toileting Transfers * Equipment Wheelchair * List name and contact numbers for known caregivers / representatives who currently or will assist patient after discharge: Bairon Chapa - friend/lives with - [phone] * Verbal permission to speak to the caregivers and representatives has been obtained from the patient. Yes * Community resources currently utilized Home Health Private Duty Care * Please name any agencies selected above. CG services 5 days a week for 6 hours each day * Additional services required to return to the preadmission environment? No * Can the patient safely return to the preadmission environment? Yes * Has this patient been hospitalized within the prior 30 days at any hospital? Yes Coverage Notice Reviewer: [email or web address] - Paola Rainey Notice Issued Date-Time: 06/06/2018 16:45 Notice Type: IM Discharge Notice Notice Delivered To: Patient Relationship to Patient: Bioinformatics Software Engineer Name: Delivery Method: HAND - Hand Delivered May Days: Prior Verbal Notification: Recipient Understood Notice: Yes Recipient Signature: Yes Med Rec Note Co-signed by Attending: Coverage Notice Comment: Last DP export: 06/06/18 3:56 Patient Name: MERCEDES HECTOR Page 12524 at 1101 All edits/amendments must be made on the electronic document DICTATION DATE: 06/07/181099 FOOD SERVICE TRAY ATTENDANT: BONILLA 06/07/18 1100 RPT#: [id number] DC DATE:06/06/18 STATUS: DIS IN [facility] [address] [place] [address] END OF REPORT
--- NOTE | ~2018-05-26 | MORECARE ---
CASE MANAGEMENT DISCHARGE SUMMARY PATIENT: MERCEDES HECTOR UNIT: [id number] ADM DATE: 05/26/18 AGE: 63 : 57 SEX: M ROOM/BED: D.2225 AUTHOR: JOLYNN,DOC PHYSICIAN: REFERRING PHYSICIAN: LENA CUELLAR MD DATE OF SERVICE: 06/06/18 Discharge Plan Patient Name: MERCEDES HECTOR Facility: [facility]:[place] : 1955 Planned Disposition: Home with Home Health Anticipated Discharge Date: 05/29/18 Discharge Date: Expected LOS: 3 Initial Reviewer: [email or web address] Initial Review Date: 05/26/2018 Generated: 06/06/18 10:42 am Comments DCP- Discharge Planning Updated by [email or web address]: Allie Ch on 06/06/18 8:[address] Cuellar's PUBLIC DEFENDER on the floor, I have asked for the exact order to lopes antibiotic. I did call Susan at [facility] and they will do his antibiotic as scheduled. I will send them order when received. CM will continue to follow and assist with discharge planning/needs. DCP- Discharge Planning Updated by [email or web address]: Allie Ch on 06/02/18 9:[address] Met with patient concerning discharge planning, he is alone in the room. States he is ready to go home and feels home is a safe environment. States he is never by himself and he has caregivers and home health services. CM will continue to follow and assist with discharge planning, needs. DCP- Discharge Planning Updated by [email or web address]: Olivia Reyes on 05/26/18 4:[address] Patient Name: MERCEDES HECTOR Admission Status: ER Accout number: [id number] Admission Date: 05-26-2018 : 1955 Admission Diagnosis: Attending: LENA CUELLAR Current LOS: 1 Anticipated DC Date: 05-29-2018 Planned Disposition: Home with Home Health Primary Insurance: MEDICARE A & B Discharge Planning Comments: CM met with patient to complete initial dc planning assessment. CM educated patient on the CM role and verbal consent given by patient to complete assessment. Patient lives at home with his friend Bairon. He has [facility] services at home and personal CG 5 x week 6 hours each day. He is wheelchair bound and does not ambulate. He has had amputation to his right leg above the knee. He stated he wears depends all the time and is incontinent of bowel and bladder at times. At discharge patient plans to return to Bairon's home with resumption of cg's and [facility]. He feels this is a safe discharge. Patient denied known discharge needs at this time. CM will continue to follow and will assist as needed with dc plans/needs. See below for more assessment information. Employment Manager: Olivia Reyes RN, [facility] DCPIA - Discharge Planning Initial Assessment Updated by [email or web address]: Olivia Reyes on 05/26/18 5:06 pm * Is the patient Alert and Oriented? Yes * How many steps to enter\exit or inside your home? None * PCP Dr. Marcus Trejo * Pharmacy [facility] [place] * Preadmission Environment Home with Family * ADLs Partial Dependent * Partial ADLs (Assistance needed) Ambulation Bathing Dressing Toileting Transfers * Equipment Wheelchair * List name and contact numbers for known caregivers / representatives who currently or will assist patient after discharge: Bairon Chapa - friend/lives with - [phone] * Verbal permission to speak to the caregivers and representatives has been obtained from the patient. Yes * Community resources currently utilized Home Health Private Duty Care * Please name any agencies selected above. CG services 5 days a week for 6 hours each day * Additional services required to return to the preadmission environment? No * Can the patient safely return to the preadmission environment? Yes * Has this patient been hospitalized within the prior 30 days at any hospital? Yes Last DP export: 06/02/18 10:02 Patient Name: MERCEDES HECTOR Page 55340 at 0942 All edits/amendments must be made on the electronic document DICTATION DATE: 06/06/18940 MDS NURSE: BONILLA 06/06/18940 RPT#: [id number] DC DATE: STATUS: ADM IN [facility] [address] [place] [address] END OF REPORT
[~2018-05-26 12:53] MED LIST: ALDACTONE25 MG PO; CORDARONE200 MG PO; COREG 3.1253.125 MG PO; COUMADIN5 MG PO; HYDRALAZINE HCL10 MG PO; LASIX20 MG PO; LEVEMIR100 U/M1 SQ; LIPITOR40 MG PO; METOLAZONE2.5 MG PO
[2018-05-26 14:36] LABS: ALBUMIN 1.4 g/dL (3.4-5.0); ANION GAP 8.3 mmol/L (8-16); BILIRUBIN - TOTAL 0.27 mg/dL (0.2-1.3); CALCIUM 7.9 mg/dL (8.5-10.1); CARBON DIOXIDE 31.7 mmol/L (21.0-32.0); CREATININE - SERUM 1.6 mg/dL (0.6-1.3); PROTEIN - SERUM 6.4 g/dL (6.4-8.2)
[2018-05-26 14:41] LABS: BASOPHILS 0.3 % (0-2); EOSINOPHILS 0.4 % (0-7); HEMOGLOBIN 8.4 g/dL (13.5-17.5); IMMATURE GRANULOCYTES 0.2 % (0-5); LYMPHOCYTES 14.6 % (15-50); MCH 30.1 pg (26.0-34.0); MCV 100.4 fL (80.0-100.0); MEAN PLATELET VOLUME 10.5 fL (7.4-10.4); MONOCYTES 4.7 % (2-11); NEUTROPHILS 79.8 % (40-80); PLATELET COUNT 190 10x3/uL (130-400); RBC 2.79 10x6/uL (4.20-6.10); RDW 19.7 % (11.5-14.5); WBC 10.3 10x3/uL (4.8-10.8)
[2018-05-26 16:37] VITALS: BP 144/56
[2018-05-26 17:11] VITALS: BP 139/68
[2018-05-26 17:13] VITALS: BP 139/68; BMI 27.4
[2018-05-26 19:44] VITALS: BP 142/58
[2018-05-27 04:45] VITALS: BP 106/46
[2018-05-27 09:18] VITALS: BP 139/52
[2018-05-27 09:26] LABS: BASOPHILS 0.3 % (0-2); EOSINOPHILS 0.9 % (0-7); HEMATOCRIT 27.8 % (42.0-54.0); HEMOGLOBIN 8.3 g/dL (13.5-17.5); IMMATURE GRANULOCYTES 0.1 % (0-5); LYMPHOCYTES 16.7 % (15-50); MCH 29.9 pg (26.0-34.0); MCHC 29.9 g/dL (31.0-37.0); MEAN PLATELET VOLUME 10.3 fL (7.4-10.4); MONOCYTES 5.8 % (2-11); NEUTROPHILS 76.2 % (40-80); PLATELET COUNT 172 10x3/uL (130-400); RBC 2.78 10x6/uL (4.20-6.10); RDW 19.7 % (11.5-14.5)
[2018-05-27 09:32] LABS: WBC 7.6 10x3/uL (4.8-10.8)
[2018-05-27 09:38] LABS: ANION GAP 5.8 mmol/L (8-16); CARBON DIOXIDE 32.9 mmol/L (21.0-32.0); CREATININE - SERUM 1.5 mg/dL (0.6-1.3); POTASSIUM - SERUM 3.7 mmol/L (3.5-5.1)
[2018-05-27 11:44] VITALS: BMI 27.3
[2018-05-27 12:28] VITALS: BP 142/66
[2018-05-27 14:01] LABS: % SATURATION 19 % (15-55); IRON 25 ug/dl (35-150); TOTAL IRON BIND CAPACITY 129 ug/dl (260-445); UNSAT IRON BIND CAPACITY 104 ug/dl (150-375)
[2018-05-27 16:01] LABS: INR 1.19 (0.85-1.17); PROTIME 14.7 SECONDS (11.6-15.0)
[2018-05-27 16:28] VITALS: BP 129/54
[2018-05-27 20:06] VITALS: BP 96/54
[2018-05-28 04:26] VITALS: BP 119/54
[2018-05-28 05:05] LABS: BASOPHILS 0.3 % (0-2); EOSINOPHILS 1.5 % (0-7); HEMATOCRIT 26.7 % (42.0-54.0); IMMATURE GRANULOCYTES 0.1 % (0-5); LYMPHOCYTES 24.7 % (15-50); MCH 29.5 pg (26.0-34.0); MCV 98.5 fL (80.0-100.0); MEAN PLATELET VOLUME 10.8 fL (7.4-10.4); MONOCYTES 7.7 % (2-11); NEUTROPHILS 65.7 % (40-80); PLATELET COUNT 184 10x3/uL (130-400); RBC 2.71 10x6/uL (4.20-6.10); RDW 19.7 % (11.5-14.5); WBC 6.8 10x3/uL (4.8-10.8)
[2018-05-28 05:11] LABS: INR 1.24 (0.85-1.17); PROTIME 15.2 SECONDS (11.6-15.0)
[2018-05-28 05:21] LABS: ANION GAP 5.9 mmol/L (8-16); CARBON DIOXIDE 34.4 mmol/L (21.0-32.0); CREATININE - SERUM 1.7 mg/dL (0.6-1.3); POTASSIUM - SERUM 3.3 mmol/L (3.5-5.1); THYROID STIMULATING HORMONE 4.16 uIU/mL (0.36-3.74); VANCOMYCIN - TROUGH 12.9 ug/mL (10.0-20.0)
[2018-05-28 09:47] VITALS: BP 133/60
[2018-05-28 13:46] VITALS: BP 107/40
[2018-05-28 16:47] VITALS: BP 111/50
[2018-05-28 21:29] VITALS: BP 105/44
[2018-05-29 05:02] VITALS: BP 115/62
[2018-05-29 05:24] LABS: BASOPHILS 0.3 % (0-2); EOSINOPHILS 1.1 % (0-7); HEMATOCRIT 27.5 % (42.0-54.0); HEMOGLOBIN 8.2 g/dL (13.5-17.5); IMMATURE GRANULOCYTES 0.4 % (0-5); LYMPHOCYTES 26.8 % (15-50); MCH 29.7 pg (26.0-34.0); MCHC 29.8 g/dL (31.0-37.0); MCV 99.6 fL (80.0-100.0); MEAN PLATELET VOLUME 10.7 fL (7.4-10.4); MONOCYTES 6.5 % (2-11); NEUTROPHILS 64.9 % (40-80); PLATELET COUNT 192 10x3/uL (130-400); RBC 2.76 10x6/uL (4.20-6.10); RDW 19.9 % (11.5-14.5); WBC 7.2 10x3/uL (4.8-10.8)
[2018-05-29 05:47] LABS: ANION GAP 10.4 mmol/L (8-16); CALCIUM 7.6 mg/dL (8.5-10.1); CARBON DIOXIDE 34.3 mmol/L (21.0-32.0); CREATININE - SERUM 1.8 mg/dL (0.6-1.3); MAGNESIUM - SERUM 1.3 mg/dL (1.8-2.4); POTASSIUM - SERUM 3.7 mmol/L (3.5-5.1)
[2018-05-29 08:32] VITALS: BP 124/48
[2018-05-29 12:20] VITALS: BP 71/46
[2018-05-29 16:39] VITALS: BP 61/23
[2018-05-29 20:00] VITALS: BP 109/46
[2018-05-30 06:21] LABS: ANION GAP 11.2 mmol/L (8-16); CALCIUM 7.4 mg/dL (8.5-10.1); CARBON DIOXIDE 32.5 mmol/L (21.0-32.0); POTASSIUM - SERUM 3.7 mmol/L (3.5-5.1)
[2018-05-30 06:52] LABS: BASOPHILS 0.5 % (0-2); EOSINOPHILS 1.8 % (0-7); HEMATOCRIT 29.5 % (42.0-54.0); HEMOGLOBIN 8.7 g/dL (13.5-17.5); IMMATURE GRANULOCYTES 0.5 % (0-5); LYMPHOCYTES 22.8 % (15-50); MCH 30.1 pg (26.0-34.0); MCHC 29.5 g/dL (31.0-37.0); MEAN PLATELET VOLUME 11.8 fL (7.4-10.4); MONOCYTES 7.1 % (2-11); NEUTROPHILS 67.3 % (40-80); RBC 2.89 10x6/uL (4.20-6.10); RDW 19.2 % (11.5-14.5)
[2018-05-30 06:54] LABS: MCV 102.1 fL (80.0-100.0); PLATELET COUNT 101 10x3/uL (130-400)
[2018-05-30 07:25] LABS: FOLATE (FOLIC ACID) - SERUM 4.1 ng/mL (>3.0)
[2018-05-30 08:24] VITALS: BP 66/37
[2018-05-30 12:04] VITALS: BP 108/61
[2018-05-30 16:14] VITALS: Ht 172.7 cm; Wt 81.6 kg
[2018-05-30 16:44] VITALS: BP 41/29
[2018-05-30 20:00] VITALS: BP 131/68
[2018-05-31 04:54] LABS: BASOPHILS 0.2 % (0-2); HEMATOCRIT 26.8 % (42.0-54.0); HEMOGLOBIN 7.9 g/dL (13.5-17.5); IMMATURE GRANULOCYTES 0.2 % (0-5); LYMPHOCYTES 25.7 % (15-50); MCH 29.8 pg (26.0-34.0); MCHC 29.5 g/dL (31.0-37.0); MCV 101.1 fL (80.0-100.0); MEAN PLATELET VOLUME 11.2 fL (7.4-10.4); MONOCYTES 6.9 % (2-11); RBC 2.65 10x6/uL (4.20-6.10); WBC 4.9 10x3/uL (4.8-10.8)
[2018-05-31 05:00] VITALS: BP 130/56
[2018-05-31 05:14] LABS: PLATELET COUNT 167 10x3/uL (130-400)
[2018-05-31 05:34] LABS: ANION GAP 7.4 mmol/L (8-16); CALCIUM 7.4 mg/dL (8.5-10.1); CARBON DIOXIDE 35.1 mmol/L (21.0-32.0); CREATININE - SERUM 1.8 mg/dL (0.6-1.3); POTASSIUM - SERUM 3.5 mmol/L (3.5-5.1); VANCOMYCIN - RANDOM 29.2 ug/mL (10.0-20.0)
[2018-05-31 08:51] VITALS: BP 48/27
[2018-05-31 20:00] VITALS: BP 135/63
[2018-06-01 00:30] VITALS: BP 138/62
[2018-06-01 06:55] LABS: BASOPHILS 0.3 % (0-2); EOSINOPHILS 0.9 % (0-7); HEMATOCRIT 29.8 % (42.0-54.0); HEMOGLOBIN 8.8 g/dL (13.5-17.5); IMMATURE GRANULOCYTES 0.2 % (0-5); LYMPHOCYTES 32.2 % (15-50); MCHC 29.5 g/dL (31.0-37.0); MCV 101.7 fL (80.0-100.0); MEAN PLATELET VOLUME 11.6 fL (7.4-10.4); MONOCYTES 7.2 % (2-11); NEUTROPHILS 59.2 % (40-80); PLATELET COUNT 175 10x3/uL (130-400); RBC 2.93 10x6/uL (4.20-6.10); RDW 19.1 % (11.5-14.5); WBC 5.8 10x3/uL (4.8-10.8)
[2018-06-01 07:11] LABS: ANION GAP 8.3 mmol/L (8-16); CALCIUM 8.1 mg/dL (8.5-10.1); CARBON DIOXIDE 33.2 mmol/L (21.0-32.0); CREATININE - SERUM 1.9 mg/dL (0.6-1.3); POTASSIUM - SERUM 3.5 mmol/L (3.5-5.1)
[2018-06-01 08:52] VITALS: BP 156/68
[2018-06-01 12:55] VITALS: BP 147/62
[2018-06-01 17:37] VITALS: BP 133/56
[2018-06-01 21:46] VITALS: BP 116/48
[2018-06-02 06:21] LABS: BASOPHILS 0.2 % (0-2); HEMATOCRIT 30.3 % (42.0-54.0); IMMATURE GRANULOCYTES 0.2 % (0-5); LYMPHOCYTES 30.7 % (15-50); MCH 29.9 pg (26.0-34.0); MCHC 29.7 g/dL (31.0-37.0); MCV 100.7 fL (80.0-100.0); MEAN PLATELET VOLUME 11.4 fL (7.4-10.4); MONOCYTES 6.9 % (2-11); PLATELET COUNT 180 10x3/uL (130-400); RBC 3.01 10x6/uL (4.20-6.10); RDW 18.8 % (11.5-14.5); WBC 5.8 10x3/uL (4.8-10.8)
[2018-06-02 06:30] LABS: ALBUMIN 1.7 g/dL (3.4-5.0); BILIRUBIN - TOTAL 0.37 mg/dL (0.2-1.3); CALCIUM 8.2 mg/dL (8.5-10.1); CARBON DIOXIDE 34.2 mmol/L (21.0-32.0); CREATININE - SERUM 1.9 mg/dL (0.6-1.3); POTASSIUM - SERUM 3.2 mmol/L (3.5-5.1)
[2018-06-02 06:38] VITALS: BP 139/89
[2018-06-02 07:56] VITALS: BP 142/76
[2018-06-02 11:56] VITALS: BP 140/81
[2018-06-02 13:16] LABS: LUPUS - INTERPRETATION Comment: (()); LUPUS - THROMBIN TIME 16.5 sec (0.0-23.0); LUPUS - dRVVT 42.4 sec (0.0-47.0); PTT-LA 45.5 sec (0.0-51.9)
[2018-06-02 17:17] VITALS: BP 140/79
[2018-06-02 22:09] VITALS: BP 111/66
[2018-06-03 06:16] VITALS: BP 121/71
[2018-06-03 07:07] LABS: BASOPHILS 0.2 % (0-2); EOSINOPHILS 1.3 % (0-7); HEMOGLOBIN 9.8 g/dL (13.5-17.5); IMMATURE GRANULOCYTES 0.2 % (0-5); LYMPHOCYTES 26.9 % (15-50); MCH 30.3 pg (26.0-34.0); MCHC 30.6 g/dL (31.0-37.0); MCV 99.1 fL (80.0-100.0); MEAN PLATELET VOLUME 11.3 fL (7.4-10.4); MONOCYTES 6.1 % (2-11); NEUTROPHILS 65.3 % (40-80); PLATELET COUNT 172 10x3/uL (130-400); RBC 3.23 10x6/uL (4.20-6.10); RDW 18.5 % (11.5-14.5); WBC 6.1 10x3/uL (4.8-10.8)
[2018-06-03 07:28] LABS: ALBUMIN 1.8 g/dL (3.4-5.0); ANION GAP 9.3 mmol/L (8-16); BILIRUBIN - TOTAL 0.38 mg/dL (0.2-1.3); CALCIUM 8.5 mg/dL (8.5-10.1); CARBON DIOXIDE 32.1 mmol/L (21.0-32.0); CREATININE - SERUM 1.7 mg/dL (0.6-1.3); POTASSIUM - SERUM 3.4 mmol/L (3.5-5.1); PROTEIN - SERUM 7.2 g/dL (6.4-8.2)
[2018-06-03 10:45] VITALS: BP 139/79
[2018-06-03 16:00] VITALS: BP 130/72
[2018-06-03 20:30] VITALS: BP 113/50
[2018-06-04 04:30] VITALS: BP 134/69
[2018-06-04 05:07] LABS: BASOPHILS 0.3 % (0-2); EOSINOPHILS 1.5 % (0-7); HEMATOCRIT 33.2 % (42.0-54.0); IMMATURE GRANULOCYTES 0.1 % (0-5); LYMPHOCYTES 22.9 % (15-50); MCH 29.9 pg (26.0-34.0); MCHC 30.1 g/dL (31.0-37.0); MCV 99.1 fL (80.0-100.0); MEAN PLATELET VOLUME 11.1 fL (7.4-10.4); MONOCYTES 7.2 % (2-11); PLATELET COUNT 200 10x3/uL (130-400); RBC 3.35 10x6/uL (4.20-6.10); RDW 18.4 % (11.5-14.5)
[2018-06-04 05:13] LABS: WBC 8.8 10x3/uL (4.8-10.8)
[2018-06-04 05:26] LABS: ALBUMIN 1.9 g/dL (3.4-5.0); ANION GAP 6.2 mmol/L (8-16); BILIRUBIN - TOTAL 0.45 mg/dL (0.2-1.3); CALCIUM 8.5 mg/dL (8.5-10.1); CARBON DIOXIDE 34.8 mmol/L (21.0-32.0); CREATININE - SERUM 2.1 mg/dL (0.6-1.3); PROTEIN - SERUM 7.5 g/dL (6.4-8.2)
[2018-06-04 09:15] VITALS: BP 109/63
[2018-06-04 13:00] VITALS: BP 116/55
[2018-06-04 20:00] VITALS: BP 122/52
[2018-06-05] VITALS: BP 99/47
[2018-06-05 04:00] VITALS: BP 99/47
[2018-06-05 05:56] LABS: BASOPHILS 0.1 % (0-2); EOSINOPHILS 1.9 % (0-7); HEMATOCRIT 32.1 % (42.0-54.0); HEMOGLOBIN 9.7 g/dL (13.5-17.5); IMMATURE GRANULOCYTES 0.1 % (0-5); LYMPHOCYTES 26.3 % (15-50); MCH 29.7 pg (26.0-34.0); MCHC 30.2 g/dL (31.0-37.0); MCV 98.2 fL (80.0-100.0); MEAN PLATELET VOLUME 11.8 fL (7.4-10.4); MONOCYTES 7.8 % (2-11); NEUTROPHILS 63.8 % (40-80); PLATELET COUNT 203 10x3/uL (130-400); RBC 3.27 10x6/uL (4.20-6.10); RDW 18.2 % (11.5-14.5); WBC 6.9 10x3/uL (4.8-10.8)
[2018-06-05 06:19] LABS: BILIRUBIN - TOTAL 0.35 mg/dL (0.2-1.3); CALCIUM 8.4 mg/dL (8.5-10.1); CARBON DIOXIDE 29.2 mmol/L (21.0-32.0); CREATININE - SERUM 2.1 mg/dL (0.6-1.3); PROTEIN - SERUM 7.5 g/dL (6.4-8.2)
[2018-06-05 06:20] LABS: ANION GAP 12.3 mmol/L (8-16); POTASSIUM - SERUM 3.5 mmol/L (3.5-5.1)
[2018-06-05 07:45] VITALS: BP 133/84
[2018-06-05 17:05] VITALS: BP 122/56
[2018-06-05 18:41] VITALS: BP 117/39
[2018-06-05 20:00] VITALS: BP 98/44
[2018-06-06] VITALS: BP 115/58
[2018-06-06 04:43] LABS: BASOPHILS 0.4 % (0-2); EOSINOPHILS 2.6 % (0-7); HEMATOCRIT 33.5 % (42.0-54.0); HEMOGLOBIN 10.3 g/dL (13.5-17.5); IMMATURE GRANULOCYTES 0.3 % (0-5); LYMPHOCYTES 33.8 % (15-50); MCH 30.2 pg (26.0-34.0); MCHC 30.7 g/dL (31.0-37.0); MCV 98.2 fL (80.0-100.0); MEAN PLATELET VOLUME 11.7 fL (7.4-10.4); MONOCYTES 7.2 % (2-11); NEUTROPHILS 55.7 % (40-80); PLATELET COUNT 231 10x3/uL (130-400); RBC 3.41 10x6/uL (4.20-6.10); RDW 18.2 % (11.5-14.5); WBC 7.2 10x3/uL (4.8-10.8)
[2018-06-06 05:16] LABS: ALBUMIN 2.1 g/dL (3.4-5.0); ANION GAP 9.4 mmol/L (8-16); BILIRUBIN - TOTAL 0.43 mg/dL (0.2-1.3); CALCIUM 8.4 mg/dL (8.5-10.1); CARBON DIOXIDE 33.9 mmol/L (21.0-32.0); CREATININE - SERUM 2.2 mg/dL (0.6-1.3); POTASSIUM - SERUM 3.3 mmol/L (3.5-5.1); PROTEIN - SERUM 7.8 g/dL (6.4-8.2)
[2018-06-06 07:21] VITALS: BP 105/62
[2018-06-06 08:43] VITALS: BP 102/50
[2018-06-06 11:57] VITALS: BP 131/56
[2018-06-06] MEDS ORDERED: LASIX20 MG PO (15:40)
[2018-06-06] MEDS ORDERED: DOXYCYCLINE HY100 M2 PO (15:41)
[2018-06-06] MEDS ORDERED: AUGMENTIN 875-11 TAB PO (15:42)
[2018-06-07 19:11] LABS: FACTOR II DNA ANALYSIS Negative (())
== END 2018-06-06 18:13 | disposition home health service (06) | DRG 299 ==
LOC: D.ER 12:53 → D.EDHOLD 15:36 → D.MS 15:36
PROVIDERS: Emergency Medicine; Family Medicine; Internal Medicine Hematology & Oncology; Internal Medicine Nephrology
DX: E11.51 Type 2 diabetes mellitus with diabetic peripheral angiopathy without gangrene (principal); E43 Unspecified severe protein-calorie malnutrition; J18.9 Pneumonia, unspecified organism; J96.21 Acute and chronic respiratory failure with hypoxia; L03.116 Cellulitis of left lower limb; E11.628 Type 2 diabetes mellitus with other skin complications; I25.10 Atherosclerotic heart disease of native coronary artery without angina pectoris; I48.91 Unspecified atrial fibrillation; Z89.611 Acquired absence of right leg above knee; I82.622 Acute embolism and thrombosis of deep veins of left upper extremity

== ENCOUNTER 2018-07-25 22:03 | Inpatient (IN) | payer MEDICARE ==
[~2018-07-25] VITALS: Ht 172.7 cm; Wt 85.9 kg
--- NOTE | ~2018-07-25 | HEMODYNAMI ---
PATIENT:MERCEDES HECTOR MEDICAL RECORD: [id number] : 57 LOCATION:[facility] D.211 ADMISSION DATE: 07/26/18 Generatedon:07/31/201813:36 Patient name: MERCEDES HECTOR Patient #: [id number] SSN: : 1955 Date of study: 07/31/2018 Page: Of Hemodynamic Procedure Report Patient Data Patient Demographics Procedure consent was obtained First Name: MERCEDES Gender: Male Last Name: KRUNAL : 1955 Patient #: [id number] Age: 63 year(s) Race: Unknown Additional ID: [id number] Contact details [address]: [address] [place] [address] State: [place] City: [place] Zip code: [address] Past Medical History Allergies Allergen Reaction Date Comments Reported Other allergy 07/31/2018 Codeine Admission Admission Data Admission Date: 07/26/2018 Admission Time: 1:03 Admit Source: Other Room #: D.2116 Lab Results Lab Result Date: 07/31/2018 Lab Result Time: 0:00 Biochemistry Name Units Result Min Max BUN mg/dl 35 --(----)-* 7 18 Creatinine mg/dl 1.6 --(----)-* 0.6 1.3 CBC Name Units Result Min Max Hematocrit % 37.6 *-(----)-- 42 54 Hemoglobin g/dl 11.3 *-(----)-- 13.5 17.5 Coagulation Name Units Result Min Max INR units 1.33 --(----)-* 0.85 1.17 PT sec 16 --(----)-* 11.6 15 Procedure Procedure Types Cath Procedure Diagnostic Procedure Cardioversion External Procedure Description Procedure Date Procedure Date: 07/31/2018 Procedure Start Time: 13:20 Procedure End Time: 13:30 Procedure Staff Name Function Malick Bain MD Performing Physician Brennon Mccall MD Additional personnel Corby Siddiqui RT Monitor Rosa Isela Mireles RN Nurse Osvaldo Loera RN Starcher And Tenter Range Feeder Procedure Data Cath Procedure Fluoroscopy Diagnostic fluoroscopy Total fluoroscopy Time: 0 time: 0 min min Diagnostic fluoroscopy Total fluoroscopy dose: 0 dose: 0 mGy mGy Contrast Material Contrast Material Type Amount (ml) Isovue 300 0 Estimated blood loss: 0 ml Procedure Complications No complications Procedure Medications Medication Administration Route Dosage Oxygen etCO2 Nasal cannula 4 l/min Refer to Anesthesia Notes for Sedation Medications Hemodynamics Rest HGB: 11.3 (g/dl) Heart Rate: 107 (bpm) Snapshots Pre Cath Intra NCS Post Cath Vital Signs Time Heart Resp SPO2 etCO2 NIBP (mmHg) Rhythm Pain Sedation Rate (ipm) (%) (mmHg) Status Level (bpm) 13:11:13 103 12 93 0 103/70(90) NSR 0 (11) 10(A) , No pain 13:15:22 105 9 92 0 104/65(88) NSR 0 (11) 10(A) , No pain 13:20:21 100 17 94 0 Measuring NSR 0 (11) 9(A) , No pain 13:24:21 55 15 96 0 107/85(102) NSR 0 (11) 9(A) , No pain 13:28:33 54 14 94 0 79/44(65) NSR 0 (11) 9(A) , No pain 13:30:42 55 15 95 0 79/45(61) NSR 0 (11) 9(A) , No pain 13:32:39 57 17 96 0 79/46(57) NSR 0 (11) 10(A) , No pain Medications Time Medication Route Dose Verified Delivered Reason Notes Effective ness by by 13:13:28 Oxygen etCO2 4 Malick Abelie used for Nasal l/min Odell Mireles vending route driver cannula 13:13:32 Refer to Malick Rosa Isela Anesthesia Odell Mireles RN Notes for Sedation Medications Procedure Log Time Note 12:55:46 Osvaldo Loera RN sent for patient. Start room use. 13:00:34 Brennon Mccall MD present and monitoring patient for TIVA. 13:09:13 Informed consent obtained and on chart 13:09:21 Admit Source: Other 13:09:45 Diagnostic Cath status Elective 13:09:52 Time tracking: Regular hours (M-F 7:00 - 5:00) 13:09:55 Plan of Care:Hemodynamics will remain stable., Cardiac rhythm will remain stable., Comfort level will be maintained., Respiratory function will remain adequate., Patient/ family verbilizes understanding of procedure., Procedure tolerated without complication., Recovers from procedure without complications.. 13:10:01 Patient received from Med II to CCL 3 Alert and oriented. Tansferred to table in Supine position. 13:10:02 Warm blankets applied, and sarah hugger turned on for patient comfort. 13:10:02 Correct patient and procedure confirmed by team. 13:10:03 ECG and BP/O2 sat monitors applied to patient. 13:10:06 Vital chart was started 13:10:10 Baseline sample Acquired. 13:10:26 Rhythm: atrial fibrillation 13:10:27 Full Disclosure recording started 13:10:43 H&P Date Dictated: 07/30/2018 Within 30 days and on chart.. 13:10:44 Pre-procedure instructions explained to patient. 13:10:44 Pre-op teaching completed and patient verbalized understanding. 13:10:49 Family unavailable. 13:13:28 Oxygen 4 l/min etCO2 Nasal cannula was administered by Rosa Isela Mireles RN; used for procedure; 13:13:32 Refer to Anesthesia Notes for Sedation Medications was administered by Rosa Isela Mireles RN; ; 13:13:58 Patient NPO since Midnight. 13:14:08 Patient allergic to Other allergyCodeine 13:14:11 Is the patient allergic to Iodine/contrast media? No. 13:14:12 Is patient on blood thinner?Yes 13:14:16 ACC The patient was administered the following blood thiners within the last 24 hours: ACCLovenox 13:16:23 Patient diabetic? Yes. 13:16:29 If diabetic: On Metformin? No 13:16:32 Previous problem with sedation/anesthesia? No ? 13:16:32 Snore? Yes 13:16:33 Sleep apnea? No 13:16:34 Deviated septum? No 13:16:35 Opens mouth fully? Yes 13:16:40 Airway obstruction? No ? 13:16:44 Dentures? Yes out 13:16:47 Patient pain scale 0/10 ?. 13:17:05 IV patent on arrival in Rt subclavian with 0.9% NaCl at KVO. 13:17:35 Lab Result : BUN 35 mg/dl 13:17:35 Lab Result : Hemoglobin 11.3 g/dl 13:17:35 Lab Result : Creatinine 1.6 mg/dl 13:17:35 Lab Result : Hematocrit 37.6 % 13:17:35 Lab Result : PT 16 sec 13:17:35 Lab Result : INR 1.33 units 13:17:37 Lab results completed and on chart. 13:17:40 Alarms reviewed by Maximo Morris 13:17:47 Quick Combo opened to sterile field. 13:17:50 Quick combo pads placed on patients chest and back. 13:17:56 Physician arrived 13:17:57 --------ALL STOP TIME OUT------ 13:18:17 Final Timeout: patient, procedure, and site verified with staff and physician. All members of the team are in agreement. 13:18:26 Physical assessment completed. ASA score P 4 - A patient with severe systemic disease that is a constant threat to life as per Malick Bain MD. 13:18:30 Sedation plan: TIVA Medication:Propofol 13:20:27 Procedure started. 13:20:30 Defibrillator synced and charged to 100 Joules. 13:20:31 Shock delivered. 13:21:27 Patient cardioverted to sinus bradycardia. 13:21:31 Procedure ended.(Physican Out) 13:23:41 Fluoroscopy time 00.00 minutes. 13:23:43 Fluoroscopy dose: 0 mGy 13:23:43 Flurop Dose total: 0 13:23:45 Contrast amount:Isovue 300 0ml. 13:23:51 Insertion/operative site no bleeding no hematoma. 13:23:59 Post Procedure Pulses reassessed and unchanged 13:24:01 Post-procedure physical assessment completed. ASA score P 4 - A patient with severe systemic disease that is a constant threat to life as per Malick Bain MD. 13:24:03 Post procedure rhythm: sinus bradycardia 13:24:05 Estimated blood loss: 0 ml 13:24:06 Post procedure instruction explained to patient.Patient verbalizes understanding. 13:24:07 Patient needs reinforcement of post procedure teaching. 13:30:04 Procedure and supply charges have been captured, reviewed, submitted and are correct. 13:30:06 Procedure Complication : No complications 13:30:08 Vital chart was stopped 13:30:08 See physician's report for complete and final results. 13:30:11 Report given to PCU. 13:30:14 Patient transfered to PCU with Stretcher. 13:30:15 Procedure ended. 13:30:15 Full Disclosure recording stopped 13:30:19 End room use (Document Last) Device Usage Item Manufacture Quantity Catalog Hospital Part Current Minimal Lot# / Name Number Charge Number Stock Pooja branham# Code Mybandstock 1 [id number] Combo Signature Audit [place] Stage Time Signature Unsigned Intra-Procedure 07/31/2018 Corby Siddiqui 1:36:20 PM RT(R) Signatures Monitor : Corby Siddiqui RT Signature : Date : Time : [address] [address]
[~2018-07-25 22:03] MED LIST changes: +AUGMENTIN 875-11 TAB PO; +DOXYCYCLINE HY100 M2 PO
[2018-07-25] MEDS ORDERED: PACERONE200 MG PO (23:08)
[2018-07-25] MEDS ORDERED: ELIQUIS2.5 MG PO (23:09)
[2018-07-26] VITALS (27 sets, daily range): BP systolic 85–128; BP diastolic 51–98; BMI 28.8
[2018-07-26 00:09] LABS: APPEARANCE CLOUDY (CLEAR); BILIRUBIN NEGATIVE (NEGATIVE); COLOR YELLOW (YELLOW); GLUCOSE NEGATIVE (NEGATIVE); KETONE NEGATIVE (NEGATIVE); NITRITE NEGATIVE (NEGATIVE); PROTEIN 1+ mg/dL (NEGATIVE); UROBILINOGEN NORMAL (NORMAL)
[2018-07-26 00:12] LABS: BACTERIA MANY /hpf (NONE SEEN); EPITHELIAL CELLS 0-5 /hpf (0-5); YEAST >1+ WITH HYPHAE /hpf (NONE SEEN)
[2018-07-26 00:14] LABS: BASOPHILS 0.1 % (0-2); EOSINOPHILS 0 % (0-7); HEMATOCRIT 36.6 % (42.0-54.0); HEMOGLOBIN 11.6 g/dL (13.5-17.5); IMMATURE GRANULOCYTES 0.5 % (0-5); LYMPHOCYTES 5.4 % (15-50); MCH 30.3 pg (26.0-34.0); MCHC 31.7 g/dL (31.0-37.0); MCV 95.6 fL (80.0-100.0); MEAN PLATELET VOLUME 10.9 fL (7.4-10.4); PLATELET COUNT 213 10x3/uL (130-400); RBC 3.83 10x6/uL (4.20-6.10); RDW 16.1 % (11.5-14.5); WBC 15.8 10x3/uL (4.8-10.8)
[2018-07-26 00:35] LABS: ALBUMIN 1.6 g/dL (3.4-5.0); ANION GAP 12.4 mmol/L (8-16); BILIRUBIN - TOTAL 0.56 mg/dL (0.2-1.3); CALCIUM 8.2 mg/dL (8.5-10.1); CARBON DIOXIDE 28.6 mmol/L (21.0-32.0); CREATININE - SERUM 3.5 mg/dL (0.6-1.3); PROTEIN - SERUM 6.9 g/dL (6.4-8.2)
[2018-07-26 00:38] LABS: THYROID STIMULATING HORMONE 1.12 uIU/mL (0.36-3.74)
--- NOTE | 2018-07-26 00:46 | NUR ---
INCREASED CARDIZEM TO 15MG/HR. HR STAYING 133-136. PT COUGHING UP THICK YELLOWISH-WHITE SPUTUM
--- NOTE | 2018-07-26 01:00 | NUR ---
DECREASED CARDIZEM TO 10MG/HR D/T BP 95/58. 1 L NS BOLUS ADMINISTERED PER DR. WOLF ORDERS.
--- NOTE | 2018-07-26 01:49 | NUR ---
REPROT GIVEN TO CAIRTO AVILA IN ICU
--- NOTE | 2018-07-26 02:15 | NUR ---
PATIENT ARRIVED TO ICU ROOM 2308 VIA STRETCHER ACCOMPANIED BY ED STAFF, ALL MONITORING EQUIPMENT PLACED, PER ICU PROTOCOL
--- NOTE | 2018-07-26 02:26 | NUR ---
PT TAKEN TO ICU ROOM 8. PT URINATED ON SELF ON WAY TO ICU. PT DID NOT STATE HE NEEDED TO URINATE. ASKED PT WHY HE DID NOT STATE HE NEEDED TO URINATE, PT ANDREY LAUGHED.
--- NOTE | 2018-07-26 02:29 | NUR ---
IVF STOPPED AT 0215 WHEN PT WAS TRANSFERED TO ICU
--- NOTE | 2018-07-26 03:00 | NUR ---
ADMISSION ASSESSMENT COMPLETE, PATIENT REPOSITIONED, NO OTHER NEEDS VOICED OR NOTED AT THIS TIME
--- NOTE | 2018-07-26 05:00 | NUR ---
PATIENT REPOSITIONED, URINAL PROVIDED, PATIENT CONTINUES TO REQUEST SOMETHING TO DRINK, ALTHOUGH IT HAS BEEN REPEATEDLY REINFORCED TO THIS PATIENT THAT PER M.D. ORDER THAT HE IS TO HAVE NOTHING TO EAT OR DRINK BY MOUTH
--- NOTE | 2018-07-26 07:21 | NUR ---
REPORT RECEIVED. ASSESSMENT COMPLETE PER FLOW SHEET. VSS. PT SLEEPING COMFORTABLY WILL CONTINUE TO MONITOR
--- NOTE | 2018-07-26 07:30 | NUR ---
ATTEMPTED TO NOTIFY DR. GAR OF CONSULT FOR THIS PATIENT UPON HIS ARRIVAL TO ICU. THIS NURSE WAS UNABLE TO PROVIDE ANY INFORMATION REGARDING ROOM NUMBER OF PATIENT CONSULT IS FOR, OR REASON FOR CONSULT BEFORE DR. GAR ABRUPTLY EXITED ICU. DR. GAR DID STATE PRIOR TO HIS DEPARTURE "I KNOW I HAVE A CONSULT, I WILL SEE THEM WHEN I'M DONE".
--- NOTE | 2018-07-26 09:10 | NUR ---
DR GAFFNEY AT [facility]. NEW ORDERS RECIEVED. PT ATE 40% BREAKFAST. DENIES NEEDS
[2018-07-26 10:20] LABS: INR 1.35 (0.85-1.17); PROTIME 16.1 SECONDS (11.6-15.0)
--- NOTE | 2018-07-26 10:40 | NUR ---
PT WIND OPERATIONS SUPERVISOR LIGHT ASSISTED WITH URINAL. PARTIAL LINEN CHANGE ADM.
[2018-07-26 10:43] LABS: CKMB 0.8 U/L (0.0-3.6); CREATINE KINASE 133 UL (21-232); TROPONIN-I 0.046 ng/mL (0.000-0.060)
--- NOTE | 2018-07-26 11:26 | NUR ---
REASSESSMENT COMPLETE PER FLOW SHEET. VSS. NO NEW CHANGES PT RESTING COMFORTABLY WILL CONTINUE TO MONITOR
--- NOTE | 2018-07-26 13:20 | NUR ---
PT SLEEPING COMFORTABLY VSS NO NEW CHANGES WILL CONTNIUE TO MONITOR
--- NOTE | 2018-07-26 15:36 | NUR ---
REASSESSMENT COMPMLETE PER FLOW SHEET. VSS NO NEW CHANGES PT RESTING COMFORTABLY WILL CONTINUE TO MONITOR
--- NOTE | 2018-07-26 19:00 | NUR ---
PT RECEIVED WITH EYES OPEN WATCHING TV. NO S/S OF DISTRESS. DENIES PAIN. TABLE CLEANED AND FRESH WATER GIVEN PER REQUEST. NO OTHER NEEDS MADE KNOWN. WILL CONTINUE TO OBSERVE.
--- NOTE | 2018-07-26 20:46 | NUR ---
PT REQUEST NICOTINE PATCH. [facility] CALLED AND [facility]DA [facility]. CALL RECEIVED FROM EUGENE AND RECEIVED ORDER FOR NICOTINE PATCH 14MG. WILL CONTINUE TO OBSERVE.
[2018-07-26 21:53] LABS: CKMB 0.4 U/L (0.0-3.6); CREATINE KINASE 71 UL (21-232); TROPONIN-I 0.031 ng/mL (0.000-0.060)
[2018-07-27] VITALS (15 sets, daily range): BP systolic 89–134; BP diastolic 57–89
--- NOTE | 2018-07-27 01:35 | NUR ---
PT WITH EYES CLOSED AND CHEST RISING. WILL CONTINUE TO OBSERVE.
--- NOTE | 2018-07-27 03:22 | NUR ---
PT COMPLAINED OF ACID REFLUX WITH TWO CRACKERS GIVEN. REASSESSMENT COMPLETED, SEE FLOW SHEET. WILL CONTINUE TO OBSERVE.
[2018-07-27 04:34] LABS: HEMATOCRIT 36.7 % (42.0-54.0); HEMOGLOBIN 11.6 g/dL (13.5-17.5); LYMPHOCYTES 8.5 % (15-50); MCH 29.8 pg (26.0-34.0); MCHC 31.6 g/dL (31.0-37.0); MCV 94.3 fL (80.0-100.0); MEAN PLATELET VOLUME 10.8 fL (7.4-10.4); NEUTROPHILS 87.8 % (40-80); PLATELET COUNT 186 10x3/uL (130-400); RBC 3.89 10x6/uL (4.20-6.10); RDW 15.7 % (11.5-14.5); WBC 10.8 10x3/uL (4.8-10.8)
[2018-07-27 04:35] LABS: ANION GAP 15.9 mmol/L (8-16); CALCIUM 7.6 mg/dL (8.5-10.1); CARBON DIOXIDE 24.4 mmol/L (21.0-32.0); CREATININE - SERUM 3.2 mg/dL (0.6-1.3); POTASSIUM - SERUM 4.3 mmol/L (3.5-5.1)
--- NOTE | 2018-07-27 07:00 | NUR ---
RECEIVED PATIENT AT THIS TIME. BEDSIDE SHIFT REPORT COMPLETE AT THIS TIME. SHIFT ASSESSMENT COMPLETE PER FLOWSHEET. VSS, WILL CONTINUE TO MONITOR CLOSELY.
--- NOTE | 2018-07-27 07:05 | NUR ---
SPOKE WITH DR FITZGERALD REPORTED 100ML URINE OUTPUT, AND PT COMPLAINT OF HEART BURN. CALCIUM LEVEL LOW ALSO SO ORDERED [address] INTO [employer]. WILL REPORT TO RECEIVING NURSE.
--- NOTE | 2018-07-27 09:15 | NUR ---
PT ASSISTED WITH URINAL AT THIS TIME. PT HAD 300CC CONCENTRATED URINE OUTPUT. WILL DOCUMENT IN I&O FLOWSHEET.
--- NOTE | 2018-07-27 11:00 | NUR ---
REASSESSMENT COMPLETE PER FLOWSHEET. NO ACUTE CHANGES NOTED AT THIS TIME. VSS, WILL CONTINUE TO MONITOR CLOSELY.
--- NOTE | 2018-07-27 12:21 | NUR ---
REPORT CALLED TO CARITO RIOS
--- NOTE | 2018-07-27 13:02 | NUR ---
PT TRANSFERRED TO 2115 VIA BED WITH ASSISTANCE FROM PADMINI RN AND BRIGHT RN. PT CLOTHING BROUGHT WITH HIM. I&O DOCUMENTED IN APPROPRIATE FLOWSHEET. MET AT THE BEDSIDE BY MEDSUR STAFF. PT CHART LEFT WITH CONTINUOUS LINTER DRIER OPERATOR. PT TOLERATED WELL AND DENIES ANY NEEDS.
--- NOTE | 2018-07-27 13:10 | NUR ---
TRANSFER FROM ICU BY BED. OREINTED TO ROOM. CALL LIGHT IN REACH. WILL CONT. PLAN OF CARE.
[2018-07-27 15:22] LABS: APTT 51.3 SECONDS (22.8-39.4); INR 1.4 (0.85-1.17); PROTIME 16.6 SECONDS (11.6-15.0)
--- NOTE | 2018-07-27 22:02 | NUR ---
PT BACK FROM CT. PT RESTING IN BED. RESTING ON RIGHT SIDE. NO S/S OF DISTRESS. NICOTINE PATCH PLACED ON LEFT SHOULDER. NO PATCH ON SKIN TO REMOVE. PT BEDLOW AND CALL LIGHT IN REACH. NEXTERONE DRIP INFUSING ORDERED TO LEFT WRIST. PT WILL CALL FOR ASSIST WHEN NEEDED.
--- NOTE | 2018-07-28 01:10 | NUR ---
PT URINATED 175, FORESKIN SWOLLEN, URINE SPILT. CLEANED PT AND REPOSITITONED. PT DENIES ANY NEEDS. WILL CPOC
--- NOTE | 2018-07-28 03:53 | NUR ---
PT RESTING IN BED. DENIES ANY NEEDS. LEVAQUIN DONE INFUSING AND FLUSHING. S/L RIGHT CHEST 22G IV. PT DENIES ANY NEEDS. WILL CPOC
[2018-07-28 04:00] VITALS: BP 123/65
[2018-07-28 06:29] LABS: BASOPHILS 0.1 % (0-2); HEMATOCRIT 34.8 % (42.0-54.0); HEMOGLOBIN 10.9 g/dL (13.5-17.5); IMMATURE GRANULOCYTES 0.4 % (0-5); LYMPHOCYTES 8.2 % (15-50); MCH 29.2 pg (26.0-34.0); MCHC 31.3 g/dL (31.0-37.0); MCV 93.3 fL (80.0-100.0); MEAN PLATELET VOLUME 11.1 fL (7.4-10.4); MONOCYTES 6.3 % (2-11); PLATELET COUNT 210 10x3/uL (130-400); RBC 3.73 10x6/uL (4.20-6.10); RDW 15.9 % (11.5-14.5); WBC 9.3 10x3/uL (4.8-10.8)
[2018-07-28 06:38] LABS: ANION GAP 14.2 mmol/L (8-16); CALCIUM 7.7 mg/dL (8.5-10.1); CARBON DIOXIDE 23.4 mmol/L (21.0-32.0); CREATININE - SERUM 2.7 mg/dL (0.6-1.3)
[2018-07-28 06:39] LABS: POTASSIUM - SERUM 3.6 mmol/L (3.5-5.1)
[2018-07-28 09:02] VITALS: BP 136/71
[2018-07-28 12:17] VITALS: BP 122/64
[2018-07-28 12:37] VITALS: Ht 172.7 cm; Wt 85.9 kg
--- NOTE | 2018-07-28 13:08 | NUR ---
IV RESTARTED TO TIGHT AC BY ELIZABETH ARZATE WITH 22 GAUGE CATH. LINE IS PATENT.
[2018-07-28 15:27] VITALS: BP 132/66
[2018-07-28 19:44] VITALS: BP 95/38
--- NOTE | 2018-07-28 22:28 | NUR ---
INITIAL ROUNDS COMPLETED AT 1915 HRS. PT DENIED ANY DISCOMFORT.
[2018-07-28 23:50] VITALS: BP 98/68
--- NOTE | 2018-07-28 23:52 | NUR ---
INTRODUCED SELF TO PATIENT AND UPDATED WHITEBOARD, PROVIDED PATIENT WITH DIABETIC SNACK. CHECKED FSBS 188, GAVE 10U OF LEVEMIR. BED IN LOWEST POSITION, CALL LIGHT WITHIN REACH, NO NEEDS AT THIS TIME. PAIN 0/10
--- NOTE | 2018-07-29 01:22 | NUR ---
BOTH RIGHT AC AND RIGHT CHEST IV INFILTRATED D/C. UNABLE TO OBTAIN PERIPHERAL ACCESS, CALLED SARAH FROM ICU AND HE WAS UNABLE TO OBTAIN IV ACCESS. LOCKED OUT OF EMAR, AMIODARONE HELD R/T LACK OF IV ACCESS. PLACED PATIENT BACK ON TELEMETRY AND MONITOR.
--- NOTE | 2018-07-29 01:34 | NUR ---
IV TO RAC INFILTRATED. DC'D WITH CATHETER INTACT. IV TO R SHOULDER OCCLUDED. DC'D WITH CATHETER INTACT. PT REFUSES IV STICKS TO HIS L ARM. ATTEMPTED X1 FOR IV TO UPPER R ARM WITHOUT SUCCESS.
[2018-07-29 03:45] VITALS: BP 119/64
--- NOTE | 2018-07-29 03:47 | NUR ---
PATIENT CURRENTLY IN AFIB UNCONTROLLED AT 118, NOTIFIED CHARGE NURSE INSTRUCTED TO CONTINUE TO MONITOR AND CALL HAMMER OPERATOR AROUND 0600 TO ASK TO CHANGE TO PO CARDIAC MEDS. CHECKED WITH PATIENT, CURRENTLY NO DISTRESS OR PAIN NOTED. BED LOW, CALL LIGHT IN REACH, ENCOURAGED TO CALL IF ANY S/SX OF PAIN OR DISTRESS OCCURS.
[2018-07-29 05:43] LABS: BASOPHILS 0.2 % (0-2); EOSINOPHILS 0.9 % (0-7); HEMATOCRIT 36.4 % (42.0-54.0); HEMOGLOBIN 11.5 g/dL (13.5-17.5); IMMATURE GRANULOCYTES 0.3 % (0-5); LYMPHOCYTES 12.9 % (15-50); MCH 29.6 pg (26.0-34.0); MCHC 31.6 g/dL (31.0-37.0); MCV 93.6 fL (80.0-100.0); MEAN PLATELET VOLUME 11.1 fL (7.4-10.4); MONOCYTES 8.5 % (2-11); NEUTROPHILS 77.2 % (40-80); PLATELET COUNT 213 10x3/uL (130-400); RBC 3.89 10x6/uL (4.20-6.10); WBC 9.1 10x3/uL (4.8-10.8)
[2018-07-29 06:03] LABS: ANION GAP 7.3 mmol/L (8-16); CARBON DIOXIDE 26.1 mmol/L (21.0-32.0); POTASSIUM - SERUM 3.4 mmol/L (3.5-5.1)
[2018-07-29 06:17] LABS: CREATININE - SERUM 1.9 mg/dL (0.6-1.3)
--- NOTE | 2018-07-29 06:32 | NUR ---
HELPED PATIENT WITH URINAL, PATIENTS RESPIRATIONS WERE EVEN AND UNLABORED. UNCONTROLLED AFIB ON THE MONITOR.
--- NOTE | 2018-07-29 07:24 | NUR ---
ROUNDING DONE WITH PATIENT NEEDING ASSISTANCE WITH URINAL. STATES TO HAVING OLD STROKE WITH FLACCID LEFT ARM. VOIDS TO URINAL WITH CLEAR URINE. OLD RIGHT AKA SEEN. BILATERAL UPPER EXTREMITES SEEN ALONG WITH HANDS. OP PERMIT HAS BEEN SIGNED AND WITNESSED FOR CVL PLACEMENT. ON HEART MONITOR SHOWING UCAF, HR 130. ON 4L PER NC. WILL MONITOR HEARTRATE AND GET STARTED BACK ON CORADARONE DRIP PAST CVL PLACEMENT.
[2018-07-29 08:00] VITALS: BP 114/73
--- NOTE | 2018-07-29 11:24 | NUR ---
COMPLETE BED LINEN CHANGED FOR INCONT. OF URINE EVEN THOUGH PATIENT IS USING HIS URINAL WITH ASSISTANCE. PENIS IS SWOLLEN. STILL AWAITING DR COUGHLIN FOR CVL PLACEMENT.
--- NOTE | 2018-07-29 12:19 | NUR ---
1200-DR COUGHLIN HERE TO PLACE RIGHT TRIPLE LUMEN CVL.
--- NOTE | 2018-07-29 12:21 | NUR ---
I CALLED [facility] IN RADIOLOGY FOR CXR QUICKLY SO THAT WE CAN RE-START HIS CORDARONE.
--- NOTE | 2018-07-29 13:17 | NUR ---
I CALLED RADIOLOGY AND SPOKE WITH [facility] AGAIN ASKING FOR CONFIRMATION OF CVL PLACEMENT SO THAT CORDARONE DRIP CAN BE RE-STARTED. HE SAYS THAT RADIOLOGIST HAS NOT LOOKED AT IT YET. I ASKED THEM TO PLEASE HURRY.
--- NOTE | 2018-07-29 13:48 | NUR ---
CLEANED UP FROM INCONT. OF URINE TO BED PAST BEDPAN USEAGE OF LARGE BROWN BM. CORDARONE RE-STARTED TO RIGHT CVL.
[2018-07-29 16:00] VITALS: BP 120/63
[2018-07-29 17:55] VITALS: BP 128/61
--- NOTE | 2018-07-29 23:33 | NUR ---
INITIAL ROUNDS COMPLETED AT 1920 HRS. PT HAD SMALL BM PER BEDPAN. PT CLEANED. ASSESSMENT COMPLETED AT 2005 HRS. VSS. UCAF PER CM HR 127. O2 4L OXIMIZER. PT ALERT AND ORIENTED, LUNGS DIMINISHED IN BASES BILAT. R AKA. BRUISE NOTED TO L HIP. L FOOT ELEVATED ON PILLOWS. 4.5 X 2.5CM UNSTAGEABLE WOUND NOTED TO INNER L HEEL. RTLSC WITH CORDARONE GOING AT 0.5MG/HR (16.7CC/HR) TO PROXIMAL PORT. MEDIAL AND DISTAL PORTS SL. R ARM SWOLEN WITH BRUISING NOTED. PT HAS GENERALIZED EDEMA WITH SCROTUM AND PENIS SWOLLEN. PM FSBS 197. LEVEMIR 10 UNITS GIVEN SUB-Q TO UPPER L ARM PER ORDERS. L ARM WITH GROSS MOVEMENT ONLY. PM SNACK SERVED. PT CURRENTLY RESTING WITH EYES CLOSED. RESP EVEN AND REGULAR. SR UP X2, CALL LIGHT WITHIN REACH.
--- NOTE | 2018-07-30 00:29 | NUR ---
PT SPILLED URINAL. PT CLEANED, BED LINENS CHANGED. REPOSITIONED IN BED FOR COMFORT. CALL LIGHT WITHIN REACH.
--- NOTE | 2018-07-30 02:16 | NUR ---
PT RESTING WITH EYES CLOSED. RESP EVEN AND REGULAR. CALL LIGHT WITHIN REACH.
--- NOTE | 2018-07-30 02:35 | NUR ---
TYLENOL 650 MG PO GIVEN FOR C/O BACK PAIN. PT UPSET STATING HE TAKES OXYCONTINE AT [facility]. INFORMED PT TO SPEAK WITH MD IN AM HE CAME IN WITH ALTERED MENTAL STATUS AND IT IS ON HOLD.
[2018-07-30 03:51] VITALS: BP 101/42
--- NOTE | 2018-07-30 04:41 | NUR ---
PT RESTING WITH EYES CLOSED. RESP EVEN AND REGULAR. SR UP X2, CALL LIGHT WITHIN REACH.
[2018-07-30 06:14] LABS: BASOPHILS 0.3 % (0-2); EOSINOPHILS 0.8 % (0-7); HEMOGLOBIN 10.8 g/dL (13.5-17.5); IMMATURE GRANULOCYTES 0.4 % (0-5); LYMPHOCYTES 16.1 % (15-50); MCHC 30.9 g/dL (31.0-37.0); MCV 94.1 fL (80.0-100.0); MEAN PLATELET VOLUME 11.3 fL (7.4-10.4); MONOCYTES 7.6 % (2-11); NEUTROPHILS 74.8 % (40-80); PLATELET COUNT 227 10x3/uL (130-400); RBC 3.72 10x6/uL (4.20-6.10); RDW 16.1 % (11.5-14.5); WBC 7.1 10x3/uL (4.8-10.8)
[2018-07-30 06:39] LABS: ANION GAP 10.6 mmol/L (8-16); CALCIUM 7.8 mg/dL (8.5-10.1); CARBON DIOXIDE 29.1 mmol/L (21.0-32.0); CREATININE - SERUM 1.7 mg/dL (0.6-1.3); POTASSIUM - SERUM 3.7 mmol/L (3.5-5.1); VANCOMYCIN - RANDOM 9.3 ug/mL (10.0-20.0)
--- NOTE | 2018-07-30 07:06 | NUR ---
VSS THROUGHOUT NIGHT. UCAF PER CM. PT STATED TYLENOL HELD BACK PAIN. NEEDS MET; WILL CONTINUE TO MONITOR.
--- NOTE | 2018-07-30 07:10 | NUR ---
VSS THROUGHOUT NIGHT. UCAF PER CM. PT STATED TYLENOL HELPED BACK PAIN. NEEDSMET;WILL CONTINUE TO MONITOR.
--- NOTE | 2018-07-30 07:58 | NUR ---
ROUNDING DONE WITH PATIENT LAYING ON RIGHT SIDE, EYES CLOSED. RESP ARE EVEN AND NON LABORED. CORDARONE INFUSING TO RIGHT TRIPLE LUMEN CVL AT 16.7. ON 4L PER NC. ON HEART MONITOR SHOWING UCAF, HR 123. WILL MONITOR.
--- NOTE | 2018-07-30 09:46 | NUR ---
B/P 96/60. HELD THE LASIX AND COREG.
--- NOTE | 2018-07-30 09:47 | NUR ---
DR PHAN IS MADE AWARE OF HOLDING B/P MEDS THIS AM. PATIENT IS ALSO CLEANED UP FROM INCONT. OF URINE.
--- NOTE | 2018-07-30 10:45 | NUR ---
PATIENT WAS GIVEN TYLENOL FOR PAIN TO HIS BACK AND KIDNEY AREA. PATIENT IS UPSET THAT HE HAS NOT BEEN GIVEN OXY. I EXPLAINED TO THE PATIENT THAT IS HAS NOT BEEN RE-NEWED AT THIS TIME AND IF IT WAS WITH HIS B/P UNDER 100, I STILL COULD NOT GIVE IT TO HIM. I ASKED THAT HE PLEASE TAKE TO EUGENE BANDA APN OR DR SANDERS WHEN THEY MAKE ROUNDS. HE IS OKAY WITH THIS.
--- NOTE | 2018-07-30 12:28 | NUR ---
ASSISTED PATIENT IN SITTING UP IN BED SO HE CAN EAT LUNCH. I ASSISTED IN CUTTING HIS CHICKEN UP.
[2018-07-30 13:05] VITALS: BP 108/45
--- NOTE | 2018-07-30 14:15 | NUR ---
CALLED TO ROOM WITH PATIENT NEEDS BEDPAN FOR STOOL. PASSING FLATUS ONLY.
--- NOTE | 2018-07-30 14:58 | NUR ---
CALLED TO ROOM WITH PATIENT WANTING PAIN MEDICAION. I CHECKED HIS B/P WITH RESULTS OF 103/54. I EXPLANED TO HIM THAT I WOULD LIKE IT AT LEAST 110 BEFORE PAIN MEDICATION IF AT ALL POSSIBLE IT WAS 96 THIS AM. HE SAID ," OKAY AND LET'S CHECK IT IN AN HOUR". I SAID OKAY.
--- NOTE | 2018-07-30 15:42 | NUR ---
B/P IS 112/60. NORCO GIVEN FOR DISCOMFORT.
[2018-07-30 16:09] VITALS: BP 112/60
--- NOTE | 2018-07-30 18:21 | NUR ---
DENIES NEEDS AT THIS TIME. PATIENT INFORMED OF BEING NPO PAST MIDNIGHT TONIGHT. STATES TO UNDERSTANDING.
--- NOTE | 2018-07-30 19:42 | NUR ---
INITIAL ROUNDS COMPLETED. PT DENIES ANY DISCOMFORT. CALL LIGHT WITHIN REACH.
[2018-07-30 19:45] VITALS: BP 107/55
--- NOTE | 2018-07-30 23:21 | NUR ---
ASSESSMENT COMPLETED AT 1958 HRS. VSS. CAF PER CM HR 93. ALERT AND ORIENTED TO PERSON,PLACE AND TIME. IV TO PROXIMAL PORT OF R TLSC WITH CORDARONE AT 1/2MG/MIN (16.7CC/HR). IV PATENT. O2 4LNC. LUNGS DIMINISHED IN BASES BILAT. R ARM RED AND SWOLLEN. L ARM WITH GROSS MOVEMENT ONLY. R AKA. SMALL BRUISE NOTED TO L HIP. BLACK AREA NOTED TO INNER L HEEL 4.5CM X 2.5CM. PM FSBS 186. VICKYIR HELD PT NPO AFTER MIDNIGHT. PM MEDS GIVEN. PM SNACK SERVED. PT CURRENTLY RESTING WITH EYES CLOSED. RESP EVEN AND REGULAR. SR UP X2,CALL LIGHT WITHIN REACH.
[2018-07-30 23:41] VITALS: BP 117/63
--- NOTE | 2018-07-31 02:09 | NUR ---
PT RESTING WITH EYES CLOSED. RESP EVEN AND REGULAR. SR UP X2, CALL LIGHT WITHIN REACH.
[2018-07-31 03:49] VITALS: BP 119/81
--- NOTE | 2018-07-31 04:24 | NUR ---
PT RESTING WITH EYES CLOSED. RESP EVEN AND REGULAR. SR UP X2, CALL LIGHT WITHIN REACH.
[2018-07-31 06:19] LABS: BASOPHILS 0.1 % (0-2); EOSINOPHILS 1.9 % (0-7); HEMATOCRIT 37.6 % (42.0-54.0); HEMOGLOBIN 11.3 g/dL (13.5-17.5); IMMATURE GRANULOCYTES 0.3 % (0-5); LYMPHOCYTES 18.5 % (15-50); MCHC 30.1 g/dL (31.0-37.0); MEAN PLATELET VOLUME 11.4 fL (7.4-10.4); MONOCYTES 7.4 % (2-11); NEUTROPHILS 71.8 % (40-80); PLATELET COUNT 221 10x3/uL (130-400); RBC 3.89 10x6/uL (4.20-6.10); RDW 16.3 % (11.5-14.5); WBC 6.9 10x3/uL (4.8-10.8)
[2018-07-31 06:26] LABS: ANION GAP 6.2 mmol/L (8-16); CALCIUM 8.1 mg/dL (8.5-10.1); CARBON DIOXIDE 32.9 mmol/L (21.0-32.0); CREATININE - SERUM 1.6 mg/dL (0.6-1.3); POTASSIUM - SERUM 4.1 mmol/L (3.5-5.1); VANCOMYCIN - RANDOM 12.7 ug/mL (10.0-20.0)
[2018-07-31 06:34] LABS: INR 1.33 (0.85-1.17)
--- NOTE | 2018-07-31 06:44 | NUR ---
VSS. PT STAED NORCO CONTROLLED BACK PAIN., NPO FOR POTENTIAL CARDIOVERSION THIS AM. NEEDS MET; WILL CONTINUE TO MONITOR.
[2018-07-31 06:50] LABS: MCV 96.7 fL (80.0-100.0)
[2018-07-31 08:01] VITALS: BP 103/67
--- NOTE | 2018-07-31 09:19 | NUR ---
CONSENTS SIGNED FOR CARDIOVERSION TODAY AND BIOPSY TOMARROW. WILL CONT. PLAN OF CARE.
--- NOTE | 2018-07-31 10:22 | NUR ---
SPEECH PATHOLOGIST AT FOR [facility].
[2018-07-31 11:23] VITALS: BP 94/61
--- NOTE | 2018-07-31 13:07 | NUR ---
LEAVING FOR SKIN CARE THERAPIST BY BED.
--- NOTE | 2018-07-31 13:51 | NUR ---
BACK FROM CARDIOVERSION. TELEMETRY SR 77. WILL CONT. PLAN OF CARE.
[2018-07-31 15:46] VITALS: BP 122/61
[2018-07-31 17:00] VITALS: BP 129/75
--- NOTE | 2018-07-31 19:30 | NUR ---
RESUMED CARE OF PT, LYING IN BED WITH EYES CLOSED RESPIRATIONS EVEN NAD UNLABORED ON 4LPM VIA NC. RIGHT TRIPLE LUMEN INFUSING CORDARONE @ 16.7 AND NS @ KVO. 70 SR ON TELEMETRY. NO NEEDS VOICED AT THIS TIME, CALL LIGHT IN REACH.
[2018-08-01] VITALS: BP 107/107
--- NOTE | 2018-08-01 03:20 | NUR ---
LYING IN BED, RESPIRATIONS EVEN AND UNLABORED. CALL LIGHT IN REACH, WILL CONTINUE WITH PLAN OF CARE.
[2018-08-01 04:00] VITALS: BP 114/41
[2018-08-01 07:02] LABS: ANION GAP 6.7 mmol/L (8-16); CALCIUM 8.4 mg/dL (8.5-10.1); CARBON DIOXIDE 31.5 mmol/L (21.0-32.0); CREATININE - SERUM 1.6 mg/dL (0.6-1.3); POTASSIUM - SERUM 4.2 mmol/L (3.5-5.1); VANCOMYCIN - RANDOM 16.7 ug/mL (10.0-20.0)
[2018-08-01 07:20] LABS: BASOPHILS 0.2 % (0-2); EOSINOPHILS 1.4 % (0-7); HEMATOCRIT 35.6 % (42.0-54.0); HEMOGLOBIN 10.5 g/dL (13.5-17.5); IMMATURE GRANULOCYTES 0.4 % (0-5); LYMPHOCYTES 16.2 % (15-50); MCH 28.9 pg (26.0-34.0); MCHC 29.5 g/dL (31.0-37.0); MCV 98.1 fL (80.0-100.0); MEAN PLATELET VOLUME 11.5 fL (7.4-10.4); MONOCYTES 8.6 % (2-11); NEUTROPHILS 73.2 % (40-80); PLATELET COUNT 211 10x3/uL (130-400); RBC 3.63 10x6/uL (4.20-6.10); RDW 16.5 % (11.5-14.5); WBC 5.6 10x3/uL (4.8-10.8)
[2018-08-01 09:10] VITALS: BP 133/52
--- NOTE | 2018-08-01 09:52 | NUR ---
YELLING OUT FOR WATER. EXPLAINED HE HAD A BIOPSY WITH SEDATION TODAY AND COULD NOT HAVE ANYTHING TO EAT OR DRINK. WILL CONT. TO MONITOR.
[2018-08-01 10:51] LABS: INR 1.21 (0.85-1.17); PROTIME 14.8 SECONDS (11.6-15.0)
[2018-08-01 10:52] LABS: APTT 41.5 SECONDS (22.8-39.4)
--- NOTE | 2018-08-01 10:59 | NUR ---
LEAVING TO CT FOR BIOPSY BY BED. WILL CONT. PLAN OF CARE.
[2018-08-01 11:53] VITALS: BP 97/61
--- NOTE | 2018-08-01 11:56 | OP ---
PATIENT NAME: MERCEDES HECTOR MEDICAL RECORD: [id number] :57 LOCATION:D.M2 D.2116 ADMISSION DATE:07/26/18 SURGEON: PORSHA COUGHLIN MD DATE OF OPERATION: 07/29/2018 PREOPERATIVE DIAGNOSES: 1. Need for IV access. 2. Atrial fibrillation. 3. Diabetes mellitus. 4. Peripheral vascular disease. 5. Qkpvq-rs-lpbhclh kidney disease. 6. Pancreatic tail mass. POSTOPERATIVE DIAGNOSES: 1. Need for IV access. 2. Atrial fibrillation. 3. Diabetes mellitus. 4. Peripheral vascular disease. 5. Rqhtz-sj-hmzsqtl kidney disease. 6. Pancreatic tail mass. PROCEDURE IN DETAIL: Right subclavian vein triple-lumen central venous line placement. SURGEON: Porsha Coughlin MD REPORT OF PROCEDURE: The patient's right chest was prepped and draped in sterile fashion. A total of 5 cc of 1% lidocaine was infused into the subcutaneous tissues. A needle was used to cannulate the right subclavian vein and a guidewire was advanced. There were some difficulties with advancing the wire first, but eventually we were able to get it to pass. The dilator trocar device was then placed over the wire and the wire followed by the triple lumen catheter. The catheter aspirated nonpulsatile dark blood and flushed easily in all 3 ports. This was sutured into place with 3-0 silk ties and dressed appropriately. COMPLICATIONS: None. CONDITION: Stable. ANESTHESIA: Local. BLOOD LOSS: Minimal. Procedure done at the bedside. TRANSINT:[id number] Voice Confirmation ID: [id number] DOCUMENT ID: [id number] OPERATIVE REPORT [id number] MERCEDES HECTOR CHRISTIAN MD at 1156 CC: [id number] DICTATION DATE: 07/29/18 1218 PRODUCT MERCHANDISER: 07/29/18 1354 ADM IN [place] [id number] [place] [address]
--- NOTE | 2018-08-01 12:16 | NUR ---
NOTIFIED BLANCA THAT PATIENT MAY BE RESTARTED ON ANTICOAGULANT OF CARDIOLOGY CHOICE THIS PM IF PATIENT HAS NO BLEEDING FROM BIOPSY SITE PER DR ANNE.
--- NOTE | 2018-08-01 12:55 | NUR ---
BACK FROM CT. VS WNL. LEFT SIDE DRSG CLEAN AND DRY. DIET RESUMED.
--- NOTE | 2018-08-01 15:50 | NUR ---
Diabetic diet with 50% average po intake past 3 days Pt sleeping during rounds Noted GI WDP Labs: BUN 36, Cr 1.6 RD following
[2018-08-01 15:52] VITALS: BP 83/32
--- NOTE | 2018-08-01 16:00 | NUR ---
HR AND B/P CALLED TO DR. SOLOMON. NEW ORDERS GIVEN.
--- NOTE | 2018-08-01 19:31 | NUR ---
RECIEVED UP IN BED WITH EYES OPEN AND TV ON REQUESTING WATER. ORIENTED X4. URINAL AT BEDSIDE. O2@ 4 LITERS PER N/C. CVL TO RIGHT CHEST. LIMITED ROM TO LEFT ARM. DSG TO RIGHT LATERAL CHEST CDI. RIGHT AKA. DENIES ANY NEEDS.
[2018-08-01 20:00] VITALS: BP 113/47
[2018-08-02] VITALS: BP 118/50
[2018-08-02 04:00] VITALS: BP 141/57
[2018-08-02 05:07] LABS: BASOPHILS 0.2 % (0-2); EOSINOPHILS 1.4 % (0-7); HEMATOCRIT 34.5 % (42.0-54.0); HEMOGLOBIN 10.4 g/dL (13.5-17.5); IMMATURE GRANULOCYTES 0.6 % (0-5); LYMPHOCYTES 16.8 % (15-50); MCH 29.1 pg (26.0-34.0); MCHC 30.1 g/dL (31.0-37.0); MCV 96.6 fL (80.0-100.0); MEAN PLATELET VOLUME 11.1 fL (7.4-10.4); MONOCYTES 6.8 % (2-11); NEUTROPHILS 74.2 % (40-80); PLATELET COUNT 203 10x3/uL (130-400); RBC 3.57 10x6/uL (4.20-6.10); RDW 16.4 % (11.5-14.5); WBC 6.3 10x3/uL (4.8-10.8)
[2018-08-02 05:34] LABS: ANION GAP 8.6 mmol/L (8-16); CALCIUM 8.1 mg/dL (8.5-10.1); CARBON DIOXIDE 30.3 mmol/L (21.0-32.0); CREATININE - SERUM 1.6 mg/dL (0.6-1.3); POTASSIUM - SERUM 3.9 mmol/L (3.5-5.1)
[2018-08-02 07:55] VITALS: BP 103/47
[2018-08-02 11:14] VITALS: BP 137/56
[2018-08-02 15:33] VITALS: BP 114/43
--- NOTE | 2018-08-02 15:53 | NUR ---
CVL DRSG CHANGED.
--- NOTE | 2018-08-02 16:42 | CN ---
PATIENT NAME:MERCEDES MEDEIROS MEDICAL RECORD: [id number] : 57 LOCATION:[facility].2116 ADMIT DATE: 07/26/18 ACCOUNT: [id number] CONSULTING PHYSICIAN: HERMES CAHTMAN MD REFERRING PHYSICIAN: SANDRA GAFFNEY MD DATE OF CONSULTATION: 07/26/2018 CONSULT REQUESTING PHYSICIAN: Sandra Gaffney MD REASON FOR CONSULTATION: Kuzqs-df-fnlkbra hypoxic respiratory failure, bilateral pneumonia. HISTORY OF PRESENT ILLNESS: Mr. Medeiros is a 63-year-old gentleman, very well known to our service, who was brought in yesterday with mental status changes and shortness of breath. Workup showed the patient has bilateral pneumonia as well as bilateral pleural effusion. Now, he is more awake and alert. There is no significant sputum production. No chest pain. No night sweats. REVIEW OF THE SYSTEMS: As in history of present illness. PAST MEDICAL HISTORY: 1. Peripheral vascular disease. 2. Diabetes mellitus. 3. History of arterial thromboembolism. 4. Chronic backache. 5. Coronary artery disease. 6. Type 2 diabetes mellitus. 7. COPD. PAST SURGICAL HISTORY: Right above-knee amputation. ALLERGIES: HE IS ALLERGIC TO CODEINE. MEDICATIONS: Pixelated was reviewed. PERSONAL AND SOCIAL HISTORY: The patient is still everyday smoker. He is nondrinker. FAMILY HISTORY: Noncontributory. PHYSICAL EXAMINATION: GENERAL: Now, the patient is lying comfortably in bed. He is not in acute distress. VITAL SIGNS: The blood pressure is 95-108 over 68, pulse is 126-134, respiration 20, temperature 99, and SpO2 is 94% on 4 liters nasal cannula. HEENT: Conjunctivae are pink. Sclerae are not icteric. NECK: Neck is supple. No JVD. CHEST: There are bilateral crackles and wheezes on forceful expiration. HEART: Rhythm regular. Normal sound. No murmur. ABDOMEN: Abdomen is soft. Bowel sounds present. No hepatosplenomegaly. RECTAL: Deferred. EXTREMITIES: No cyanosis. No clubbing. No pedal edema. CENTRAL NERVOUS SYSTEM: The patient is awake and alert. There is no obvious cranial nerve abnormality. The gait was not tested. CONSULT REPORT [id number] MERCEDES MEDEIROS He has right above-knee amputation. DIAGNOSTIC DATA: Chest radiograph; there are bilateral lower lobe infiltrates. There are bilateral pleural effusions. LABORATORY DATA: CBC; WBC is 15.8, hemoglobin is 11.6, hematocrit is 36.6, and platelet count is 213. Chemistry; sodium is 134, potassium is 4, BUN is 56, and creatinine is 3.5. ABG; the pH is 7.30, pCO2 is 58.6, pO2 is 74, and bicarbonate 29.4. IMPRESSION: 1. Aelmp-wd-eiwfllk hypoxic respiratory failure. 2. Respiratory acidosis. 3. Bilateral lower lobe pneumonia. 4. COPD exacerbation. 5. Pleural effusion, possible parapneumonic. 6. Leukocytosis secondary to pneumonia. 7. Pcnua-ox-hcsqkhj kidney injury. 8. Atrial flutter/fibrillation. 9. Tobacco dependence syndrome. 10. Acute mental status changes secondary to sepsis and metabolic encephalopathy. RECOMMENDATION: 1. Continue Levaquin. I will add cefepime. 2. Albuterol/ipratropium nebulizer. 3. The patient had no significant wheezing. I will hold on corticosteroid, but I will start him on budesonide nebulizer. 4. Supplemental oxygen as required. 5. Bilateral decubitus chest radiograph. 6. DVT prophylaxis. Dr. Gaffney, thank you for involving me in the care of Mr. Medeiros. TRANSINT:[id number] Voice Confirmation ID: [id number] DOCUMENT ID: [id number] HERMES CHATMAN MD at 1642 CC: [id number] DICTATION DATE: 07/26/18 1516 ACOUSTICAL TILE DRILL PRESS OPERATOR: 07/26/18 1807 ADM IN [place] [id number] [place] [address]
--- NOTE | 2018-08-02 19:22 | NUR ---
RESUMED CARE OF PT, LYING IN BED WITH EYES CLOSED RESPIRATIONS EVEN AND UNLABORED ON 4LPM VIA NC. 62 SR ON TELEMETRY. RIGHT TRIPLE LUMEN SALINE LOCKED. NO NEEDS NOTED AT THIS TIME, CALL LIGHT IN REACH. SEE NURSE ASSESSMENT.
[2018-08-02 20:00] VITALS: BP 115/43
--- NOTE | 2018-08-02 23:37 | NUR ---
LYING IN BED WITH CALL LIGHT IN REACH. WILL CONTINUE TO MONITOR.
[2018-08-03] VITALS: BP 124/47
[2018-08-03 04:00] VITALS: BP 128/48
--- NOTE | 2018-08-03 07:41 | NUR ---
ROUNDING DONE WITH PATIENT LAYING ON RIGHT SIDE, EYES CLOSED. AROUSES EASILY. PATIENT IS OKD RIGHT AKA. FLACCID LEFT ARM. ON HEART MONITOR SHOWING SR, HR 65. ON 4L PER NC.
[2018-08-03 08:25] VITALS: BP 122/43
[2018-08-03 11:33] VITALS: BP 89/57
--- NOTE | 2018-08-03 12:38 | NUR ---
PATIENT IS REFUSING TO EAT OR DRINK ANYTHING FOR LUNCH TODAY. I ASKED HIM WHY AND HE REPLIED, "I DON'T WANT TO". I TRIED TO ENCOURGAGE HIM HE IS DIABETIC AND HE STATES THAT HE DOESN'T CARE.
--- NOTE | 2018-08-03 13:21 | NUR ---
CLEANED UP FROM INCONT. OF URINE. STATES TO HAVING SOME NAUSEA NOW. WILL SEE IF THERE IS ANY MEDICATION FOR THIS.
--- NOTE | 2018-08-03 13:50 | NUR ---
1346-TO CT VIA BED.
--- NOTE | 2018-08-03 13:54 | NUR ---
PATIENT TO RETURN FROM CT, THEY STATE THAT HE IS GOING TO HAVE AN MRI NOW.
--- NOTE | 2018-08-03 15:36 | NUR ---
DR RIVERA MADE AWARE OF PATIENT NOT EATING AND DRINKING. NEW ORDERS RECEIVED.
[2018-08-03 16:23] VITALS: BP 108/58
--- NOTE | 2018-08-03 17:29 | NUR ---
1710-PAGE INTO DR GAR ORTHODONTIC BAND MAKER TELLS ME PATIENT IS A FLUTTER, HR 93. AWAITING CALL BACK.
--- NOTE | 2018-08-03 17:32 | NUR ---
DR GAR TO CALL BACK WITH NO NEW ORDERS AT THIS TIME LONG PATIENT STAYS BELOW 100 FOR RATE.
--- NOTE | 2018-08-03 18:38 | NUR ---
CLEANED UP FROM INCONT. OF URINE. DENIES ANY NEEDS.
--- NOTE | 2018-08-03 19:06 | NUR ---
DO WITH MRI AND MYSELF ARE CONCERNED ABOUT PATIENT BEING OFF HEART MONITOR SINCE A FLUTTER AT 1710. WILL RE-EVALUATE IN AM.
[2018-08-03 20:00] VITALS: BP 100/50
--- NOTE | 2018-08-03 20:05 | NUR ---
RESUMED CARE OF PT, LYING IN BED RESPIRATIONS EVEN AND UNLABORED ON 4LPM VIA NC. 85 FLUTTER ON TELEMETRY. RIGHT TRIPLE LUMEN INFUSING PROCALAMINE @ 75 AND NS @ 20. URINAL OFFERED AT THIS TIME. NO FURTHER NEEDS. CALL LIGHT IN REACH. SEE NURSE ASSESSMENT.
[2018-08-04] VITALS: BP 99/50
[2018-08-04 04:00] VITALS: BP 120/59
--- NOTE | 2018-08-04 04:33 | NUR ---
TOOL GRINDER AT BEDSIDE TO OBTAIN VITALS, CALL LIGHT IN REACH. WILL CONTINUE WITH PLAN OF CARE.
--- NOTE | 2018-08-04 07:32 | NUR ---
ROUNDING DONE WITH PATIENT LAYING ON RIGHT SIDE. RIGHT TRIPLE LUMEN SEEN WITH PROCALAMINE INFUSING AT 75 CC/HR. DRESSING C/D/I. ON 4L PER NC. REESETENT STATES THAT HE IS "HUNGRY". NS INFUSING AT 10 CC/HR. LEFT ARM FLACCID. LEFT HAND IS SLIGHTLY SWOLLEN, ENCOURAGED TO KEEP UP WITH THE EDEMA. ON HEART MONITOR SHOWING UCAF/FLUTTER, HR 102.
--- NOTE | 2018-08-04 08:48 | NUR ---
PATIENT IS AWAKE AND ATE HIS WHOLE BREAKFAST PLUS EXTRA ORANGE JUICE.
[2018-08-04 09:21] VITALS: BP 108/60
[2018-08-04 12:52] VITALS: BP 108/72
--- NOTE | 2018-08-04 15:00 | NUR ---
HEENA ARNDT-FRIEND TO CALL AND CHECK ON THE PATIENT. I ASKED MR HECTOR IF I COULD TALK TO HEENA AND HE SAID "YES". HEENA ASKED IF HE WAS DOING ANY BETTER AND WANTED TO KNOW THE BX RESULTS. I INFORMED HIM THAT THE PATIENT WAS DOING BETTER WITH HIS ALERTNESS AND EATING TODAY. HE SAID THAT HE WOULD BE UP LATER AND I LET THE PATIENT KNOW THIS.
--- NOTE | 2018-08-04 15:12 | NUR ---
LOOKING AT HEART MONITOR PATIENT IS SB, HR 59.
--- NOTE | 2018-08-04 15:38 | NUR ---
UNABLE TO CLEAR PATIENT FOR MRI BRAIN W/WO. NO FAMILY THAT KNOWS MED HISTORY ATTEMPTED TO CONTACT DR PETERS AND COULDN'T GET AN ANSWER. SPOKE WITH PTS NURSE ELVIA AND INFORMED HER OF THE STATUS. DR CALLE, RADIOLOGIST, RECOMMEDS A CT INSTEAD.
[2018-08-04 16:12] VITALS: BP 121/41
[2018-08-04 19:00] VITALS: BP 98/54
--- NOTE | 2018-08-04 19:56 | NUR ---
PT RESTING IN BED WATCHING TV. PT LAYING ON RIGHT SIDE, HAS PROCAL INFUSING AT 75 TO RIGHT CVL. 2.5L O2 NC. PT BEDLOW AND CALL LIGHT IN REACH. LEFT HAND EDEMA. ELEVATED ARM. NAME AND DATE PLACED ON BOARD. PT DENIES ANY NEEDS. NO S/S OF DISTRESS. WILL CPOC
--- NOTE | 2018-08-04 22:49 | NUR ---
PT FSBS IS 289, LEVEMIR GIVEN ORDERED. PT COMPLAINS OF NAUSEA AND PAIN. NORCO AND ZOFRAN GIVEN ORDERED. PT ENCOURAGED TO REPOSITION BUT DECLINED. VERBLAIZED UNDERSTANDING WHEN NURSE SPOKE WITH PT REGARDING RISK ASSOCIATED TO NOT MOVING/REPOSITIONING. PT DENIES ANY NEEDS. NO S/S OF DISTRESS. WILL CPOC
[2018-08-05] VITALS: BP 115/41
[2018-08-05 04:00] VITALS: BP 98/48
--- NOTE | 2018-08-05 06:20 | NUR ---
PT REPOSITIONED MUCH PT WOULD ALLOW. PT DENIES ANY NEEDS. NO S/S OF DISTRESS. PT BEDLOW AND CALL LIGHT IN REACH. WILL CPOC
[2018-08-05 07:35] LABS: BASOPHILS 0.1 % (0-2); EOSINOPHILS 0.9 % (0-7); HEMATOCRIT 33.1 % (42.0-54.0); IMMATURE GRANULOCYTES 0.3 % (0-5); LYMPHOCYTES 16.3 % (15-50); MCH 28.6 pg (26.0-34.0); MCHC 30.2 g/dL (31.0-37.0); MCV 94.6 fL (80.0-100.0); MEAN PLATELET VOLUME 11.2 fL (7.4-10.4); MONOCYTES 4.4 % (2-11); PLATELET COUNT 177 10x3/uL (130-400); RDW 16.6 % (11.5-14.5); WBC 7.1 10x3/uL (4.8-10.8)
[2018-08-05 07:47] LABS: ANION GAP 4.9 mmol/L (8-16); CALCIUM 7.1 mg/dL (8.5-10.1); CARBON DIOXIDE 35.5 mmol/L (21.0-32.0); CREATININE - SERUM 1.4 mg/dL (0.6-1.3); POTASSIUM - SERUM 3.4 mmol/L (3.5-5.1); VANCOMYCIN - RANDOM 13.5 ug/mL (10.0-20.0)
[2018-08-05 10:34] VITALS: BP 139/45
--- NOTE | 2018-08-05 12:34 | NUR ---
Rehab Note- Acute Inpatient Rehab prescreen order recieved. Reviewed patient's medical record at this time- continues to have cardiac following d/t continues to have issues despite cardioversion and trying medication adjustments at this time. Upon PT Eval 08/03 wasn't able to participate in eval well nor oriented enough to give adequate history. He has had any therapy since eval, will follow at this time to see if cognititon clears, able to participate in the required 3hrs/day of therapy, and medically stabilizes. Thank you for this referral! Luz Maria Story RN Clinical Liaison, [facility] Rehab
--- NOTE | 2018-08-05 12:46 | NUR ---
REPOSITIONED NEEDED FOR MEALS.TELEMETRY A-FLUTTER 77.
[2018-08-05 13:06] VITALS: BP 111/46
[2018-08-05 16:17] VITALS: BP 129/35
--- NOTE | 2018-08-05 19:45 | NUR ---
PT AWAKE/ALERT AND REQUESTING PAIN MEDICATION. FAMILY X 2 AT BEDSIDE. ASSESSMENT COMPLETED. PT NOW 53 SB PER TELEMETRY AND ACCORDING TO MANDOLIN REPAIRER, HE HAS BEEN SB SINCE 0930 THIS AM. RIGHT SC TL WITH PROCALAMINE AT 75ML/HR AND NS @ KVO. PROXIMAL PORT/WHITE PORT DOES NOT FLUSH. ALL OTHER PORTS HAVE GOOD BLOOD RETURN. BEDTIME MEDS GIVEN, INCLUDING NORCO FOR LEFT ARM AND GENERALIZED PAIN. WILL MONITOR AND PROVIDE CARE.
[2018-08-05 19:54] VITALS: BP 105/24
--- NOTE | 2018-08-05 23:33 | NUR ---
C/O NAUSEA. MEDICATED WITH ZOFRAN 4MG SIVP. FSBS 193, LEVEMIR 10ML SC GIVEN SCHEDULED. MONITOR AND CPOC.
--- NOTE | 2018-08-06 02:17 | NUR ---
PT C/O PAIN AND DISCOMFORT.MEDICATED WITH NORCO TAB X 1. NO OTHER NEEDS. IV PROCALAMINE INFUSING. IVF AT [facility]. MONITOR AND CPOC.
[2018-08-06 03:44] VITALS: BP 102/31
[2018-08-06 05:16] LABS: BASOPHILS 0.1 % (0-2); EOSINOPHILS 1.7 % (0-7); HEMATOCRIT 32.6 % (42.0-54.0); HEMOGLOBIN 9.7 g/dL (13.5-17.5); IMMATURE GRANULOCYTES 0.4 % (0-5); LYMPHOCYTES 21.3 % (15-50); MCH 28.5 pg (26.0-34.0); MCHC 29.8 g/dL (31.0-37.0); MCV 95.9 fL (80.0-100.0); MEAN PLATELET VOLUME 11.2 fL (7.4-10.4); MONOCYTES 6.2 % (2-11); NEUTROPHILS 70.3 % (40-80); PLATELET COUNT 167 10x3/uL (130-400); RDW 16.5 % (11.5-14.5); WBC 7.2 10x3/uL (4.8-10.8)
[2018-08-06 07:00] LABS: ANION GAP 9.3 mmol/L (8-16); CALCIUM 7.6 mg/dL (8.5-10.1); CARBON DIOXIDE 32.1 mmol/L (21.0-32.0); CREATININE - SERUM 1.4 mg/dL (0.6-1.3); POTASSIUM - SERUM 4.4 mmol/L (3.5-5.1); VANCOMYCIN - RANDOM 10.6 ug/mL (10.0-20.0)
[2018-08-06 09:27] VITALS: BP 95/33
[2018-08-06 11:42] VITALS: BP 115/46
[2018-08-06 15:57] VITALS: BP 110/51
[2018-08-06 20:00] VITALS: BP 124/48
--- NOTE | 2018-08-06 20:26 | NUR ---
INITIAL ROUNDS AND ASSESSMENT COMPLETED. PT ALERT/ORIENTED AND WATCHING FOOTBALL ON TV. DISCUSSED NEXT PAIN MED DOSE WILL BE DUE WITH HIS BEDTIME MEDS. PT VOICES UNDERSTANDING. FSBS 169. MONITOR AND CPOC.
--- NOTE | 2018-08-06 22:41 | NUR ---
BEDTIME MEDS GIVEN. HS LEVEMIR ADMINISTERED. PT REQUESTED AND RECIEVED IV ZOFRAN FOR NAUSEATED STOMACH. PT ALSO REQUESTED AND RECIEVED NORCO TAB FOR PAIN/GENERALIZED DISCOMFORT. CALL LIGHT IN REACH. MONITOR AND CPOC.
[2018-08-07 04:00] VITALS: BP 130/56
--- NOTE | 2018-08-07 06:50 | NUR ---
REPORT TO OFF GOING NURSE. PT RESTING WITH NO DISTRESS. MONITOR AND CPOC.
[2018-08-07 06:51] LABS: BASOPHILS 0.2 % (0-2); EOSINOPHILS 2.2 % (0-7); HEMATOCRIT 33.6 % (42.0-54.0); HEMOGLOBIN 10.3 g/dL (13.5-17.5); IMMATURE GRANULOCYTES 0.6 % (0-5); MCH 29.3 pg (26.0-34.0); MCHC 30.7 g/dL (31.0-37.0); MCV 95.5 fL (80.0-100.0); MEAN PLATELET VOLUME 11.7 fL (7.4-10.4); MONOCYTES 5.4 % (2-11); NEUTROPHILS 69.6 % (40-80); PLATELET COUNT 178 10x3/uL (130-400); RBC 3.52 10x6/uL (4.20-6.10); RDW 16.6 % (11.5-14.5); WBC 8.8 10x3/uL (4.8-10.8)
[2018-08-07 07:08] LABS: ANION GAP 8.5 mmol/L (8-16); CALCIUM 8.1 mg/dL (8.5-10.1); CARBON DIOXIDE 33.4 mmol/L (21.0-32.0); CREATININE - SERUM 1.4 mg/dL (0.6-1.3); POTASSIUM - SERUM 4.9 mmol/L (3.5-5.1); VANCOMYCIN - RANDOM 8.2 ug/mL (10.0-20.0)
--- NOTE | 2018-08-07 07:30 | NUR ---
RECEIVED PT IN BED AAOX4 RESP UNLABORED DENIES ANY NEEDS OR DISCOMFORT NAD NOTED WILL CONTINUE TO MONITOR
[2018-08-07 08:56] VITALS: BP 100/43
--- NOTE | 2018-08-07 11:41 | NUR ---
Rehab Note- Visited with the patient. He is not interested in inpatient acute rehab, he wants to go home. Informed MARVIN Main and MARVIN Stock. Thank you for this referral! Luz Maria Story RN Clinical Liaison, [facility] Rehab
[2018-08-07] MEDS ORDERED: BETAPACE 80 MG80 MG PO (14:49)
--- NOTE | 2018-08-07 16:55 | MORECARE ---
CASE MANAGEMENT DISCHARGE SUMMARY PATIENT: MERCEDES HECTOR UNIT: [id number] ADM DATE: 07/26/18 AGE: 63 : 57 SEX: M ROOM/BED: D.6503 AUTHOR: JOLYNN,DOC PHYSICIAN: REFERRING PHYSICIAN: SID GAFFNEY MD DATE OF SERVICE: 08/07/18 Discharge Plan Patient Name: MERCEDES HECTOR Facility: [facility]:[place] : 1955 Planned Disposition: Home with Home Health Anticipated Discharge Date: 08/07/18 Discharge Date: Expected LOS: 12 Initial Reviewer: [email or web address] Initial Review Date: 08/07/2018 Generated: 08/07/18 5:54 pm Comments DCP- Discharge Planning Updated by [email or web address]: Margarito Richards on 08/07/18 3:[address] Patient Name: MERCEDES HECTOR Encounter No: [id number] : 1955 Primary Insurance: MEDICARE A & B Anticipated DC Date: 08-07-2018 Planned Disposition: Home with Home Health External Planned Provider: [facility] DCP follow-up note: CM RECEIVED ORDER FOR INPATIENT REHAB PRESCREENING. CM MET WITH PT IN ROOM. PT REPORTS HE HAS MET WITH THE REHAB LADY AND THERAPIST. PT STATES HE IS GOING HOME AND IS STRONG ENOUGH TO GO HOME TODAY. PT STATES HE WANTS TO GO HOME TODAY. CM CALLED HIS PRIVATE DUTY NURSING TECHNICIAN WHO WILL RESUME SERVICES TOMOR[place]OW AND INFORMED PT TO CALL EHENA TO GET A RIDE HOME TODAY IF DISCHARGED. CM DISCUSSED AVAILABILITY OF HOME HEALTH, REHAB SERVICES AND MEDICAL EQUIPMENT. PT DENIES DISCHARGE NEEDS AND THEN ASKED FOR HOME HEALTH AND HAS [facility] AND WANTS THEM AGAIN. CHOICE SIGNED. FRIEND, HEENA TO TRANSPORT HOME AT DISCHARGE. IMPORTANT MESSAGE FROM MEDICARE PROVIDED AND EXPLAINED. CM SPOKE TO JANICE BANDA AND NOTIFED OF PT'S PLAN. CM SPOKE TO JEN OF INPATIENT REHAB WHO INFORMED CM THAT PT WANTS TO GO HOME AND REFUSED REHAB. CM SPOKE TO THERAPY WHO INFORMED CM THAT PT IS SAFE FOR TRANSFERS TO WHEELCHAIR. PEARL MAKER NURSE NOTIFIED. CM CALLED [facility], , SPOKE TO [place] REFERRAL PROVIDED, PT PLACED ON SCHEDULE AND THEY WILL SEE TOMORROW OR TUESDAY AT THE LATEST. PT NOTIFIED AND IN AGREEMENT WITH PLAN. CM FAXED REFERRAL AND DISCHARGE INFORMATION FAXED TO [facility] AT, . Margarito Maurice, CASE VELMA DCPIA - Discharge Planning Initial Assessment Updated by [email or web address]: Margarito Richards on 08/07/18 4:48 pm * Is the patient Alert and Oriented? Yes * How many steps to enter\exit or inside your home? NONE * PCP DR. SILVEIRA IN [place] * Pharmacy [facility] * Preadmission Environment Home with Family * ADLs Partial Dependent * Partial ADLs (Assistance needed) Ambulation Bathing Dressing Toileting Transfers * Equipment Wheelchair * Other Equipment NO MEDICAL EQUIPMENT PROVIDER PREFERENCE * List name and contact numbers for known caregivers / representatives who currently or will assist patient after discharge: HEENA ARNDT, FRIEND, * Verbal permission to speak to the caregivers and representatives has been obtained from the patient. N/A * Community resources currently utilized Private Duty Care * Please name any agencies selected above. [facility], PERSONAL CARE, 5 DAYS PER WEEK, 6 HOURS PER DAY * Additional services required to return to the preadmission environment? No * Can the patient safely return to the preadmission environment? Yes * Has this patient been hospitalized within the prior 30 days at any hospital? No Patient Name: MERCEDES HECTOR Page [id number] at 1655 All edits/amendments must be made on the electronic document DICTATION DATE: 08/07/181653 CREW SCHEDULER: BONILLA 08/07/181653 RPT#: [id number] HI DATE: STATUS: ADM IN [facility] [address] [place] [address] END OF REPORT
--- NOTE | 2018-08-07 17:05 | MORECARE ---
CASE MANAGEMENT DISCHARGE SUMMARY PATIENT: MERCEDES HECTOR UNIT: [id number] ADM DATE: 07/26/18 AGE: 63 : 57 SEX: M ROOM/BED: D.2871 AUTHOR: JOLYNN,DOC PHYSICIAN: REFERRING PHYSICIAN: SID GAFFNEY MD DATE OF SERVICE: 08/07/18 Discharge Plan Patient Name: MERCEDES HECTOR Facility: [facility]:[place] : 1955 Planned Disposition: Home with Home Health Anticipated Discharge Date: 08/07/18 Discharge Date: Expected LOS: 12 Initial Reviewer: [email or web address] Initial Review Date: 08/07/2018 Generated: 08/07/18 6:05 pm Comments DCP- Discharge Planning Updated by [email or web address]: Margarito Richards on 08/07/18 3:[address] Patient Name: MERCEDES HECTOR Encounter No: [id number] : 1955 Primary Insurance: MEDICARE A & B Anticipated DC Date: 08-07-2018 Planned Disposition: Home with Home Health External Planned Provider: [facility] DCP follow-up note: CM RECEIVED ORDER FOR INPATIENT REHAB PRESCREENING. CM MET WITH PT IN ROOM. PT REPORTS HE HAS MET WITH THE REHAB LADY AND THERAPIST. PT STATES HE IS GOING HOME AND IS STRONG ENOUGH TO GO HOME TODAY. PT STATES HE WANTS TO GO HOME TODAY. CM CALLED HIS PRIVATE DUTY MEAT SALES AND STORAGE MANAGER WHO WILL RESUME SERVICES [place]OR[place] AND INFORMED PT TO CALL HEENA TO GET A RIDE HOME TODAY IF DISCHARGED. CM DISCUSSED AVAILABILITY OF HOME HEALTH, REHAB SERVICES AND MEDICAL EQUIPMENT. PT DENIES DISCHARGE NEEDS AND THEN ASKED FOR HOME HEALTH AND HAS [facility] AND WANTS THEM AGAIN. CHOICE SIGNED. FRIEND, HEENA TO TRANSPORT HOME AT DISCHARGE. IMPORTANT MESSAGE FROM MEDICARE PROVIDED AND EXPLAINED. CM SPOKE TO JANICE BANDA AND NOTIFED OF PT'S PLAN. CM SPOKE TO JEN OF INPATIENT REHAB WHO INFORMED CM THAT PT WANTS TO GO HOME AND REFUSED REHAB. CM SPOKE TO THERAPY WHO INFORMED CM THAT PT IS SAFE FOR TRANSFERS TO WHEELCHAIR. LAW FIRM CONSULTANT NURSE NOTIFIED. CM CALLED [facility], , SPOKE TO [place] REFERRAL PROVIDED, PT PLACED ON SCHEDULE AND THEY WILL SEE TOMORROW OR TUESDAY AT THE LATEST. PT NOTIFIED AND IN AGREEMENT WITH PLAN. CM FAXED REFERRAL AND DISCHARGE INFORMATION FAXED TO [facility] AT, . Margarito Medinawell, CASE VELMA DCPIA - Discharge Planning Initial Assessment Updated by [id number]: Margarito Richards on 08/07/18 4:48 pm * Is the patient Alert and Oriented? Yes * How many steps to enter\exit or inside your home? NONE * PCP DR. SILVEIRA IN [place] * Pharmacy [facility] * Preadmission Environment Home with Family * ADLs Partial Dependent * Partial ADLs (Assistance needed) Ambulation Bathing Dressing Toileting Transfers * Equipment Wheelchair * Other Equipment NO MEDICAL EQUIPMENT PROVIDER PREFERENCE * List name and contact numbers for known caregivers / representatives who currently or will assist patient after discharge: HEENA ARNDT, FRIEND, * Verbal permission to speak to the caregivers and representatives has been obtained from the patient. N/A * Community resources currently utilized Private Duty Care * Please name any agencies selected above. [facility], PERSONAL CARE, 5 DAYS PER WEEK, 6 HOURS PER DAY * Additional services required to return to the preadmission environment? No * Can the patient safely return to the preadmission environment? Yes * Has this patient been hospitalized within the prior 30 days at any hospital? No External Providers External Provider: [facility] Next Contact Date: 08/07/2018 Service Request Date: Service Type: Resolution: Reviewer: Comments: Last DP export: 08/07/18 3:55 p Patient Name: MERCEDES HECTOR Page [phone] at 1705 All edits/amendments must be made on the electronic document DICTATION DATE: 08/07/181704 SHEAR SETTER: BONILLA 08/07/18 170 RPT#: [id number] DC DATE: STATUS: ADM IN [facility] [address] [place] [address] END OF REPORT
--- NOTE | 2018-08-07 17:10 | NUR ---
REVIEWED DISCHARGE INSTRUCTIONS WITH PT STATES UNDERSTANDING COPY GIVEN DISCONTIUED TRIPLE LUMAN CENTRA LINE TO RT SUBCLAVIAN WITH CATHETER INTACT SITE FREE OF REDNESS OR EDEMA OCCLUSIVE DRSG APPLIED PT TRANSFERED TO W/H WITHOUT DIFFICULTY AND DISCHARGED HOME IN STABLE CONDITION WITH ALL PERSONAL BELONGINGS
== END 2018-08-07 17:10 | disposition home health service (06) | DRG 871 ==
LOC: D.ER 22:03 → D.M2 07-26 01:03 → D.EDHOLD 07-26 01:03 → D.ICU 07-26 01:03 → D.M2 07-27 13:06
PROVIDERS: Emergency Medicine; Internal Medicine; Internal Medicine Nephrology; Internal Medicine Pulmonary Disease; Radiology Diagnostic Radiology; Specialist; ADMIT Emergency Medicine
PROC: 05H533Z Insertion of Infusion Device into Right Subclavian Vein, Percutaneous Approach (ICD-10-PCS; principal; 2018-07-29)
PROC: 0FD Hepatobiliary System and Pancreas, Extraction (ICD-10-PCS; 2018-08-01)
DX: A41.1 Sepsis due to other specified staphylococcus (principal); J18.1 Lobar pneumonia, unspecified organism; G93.41 Metabolic encephalopathy; N17.0 Acute kidney failure with tubular necrosis; J96.21 Acute and chronic respiratory failure with hypoxia; J96.22 Acute and chronic respiratory failure with hypercapnia; K85.82 Other acute pancreatitis with infected necrosis; J44.0 Chronic obstructive pulmonary disease with (acute) lower respiratory infection; J44.1 Chronic obstructive pulmonary disease with (acute) exacerbation; B37.49 Other urogenital candidiasis; I48.92 Unspecified atrial flutter; E87.1 Hypo-osmolality and hyponatremia; K86.3 Pseudocyst of pancreas; J98.11 Atelectasis; E11.21 Type 2 diabetes mellitus with diabetic nephropathy; E11.51 Type 2 diabetes mellitus with diabetic peripheral angiopathy without gangrene; I48.91 Unspecified atrial fibrillation; F17.200 Nicotine dependence, unspecified, uncomplicated; E11.22 Type 2 diabetes mellitus with diabetic chronic kidney disease; N18.3 Chronic kidney disease, stage 3 (moderate); I25.10 Atherosclerotic heart disease of native coronary artery without angina pectoris; K86.89 Other specified diseases of pancreas